=== PATIENT | female | born 1990 | race Caucasian/White ===

== ENCOUNTER 2017-09-18 14:16 | Emergency (ER) | payer BC, OTHER ==
[2017-09-18 14:25] VITALS: BP 120/84; BMI 32.9
[2017-09-18] MEDS ORDERED: BACITRACIN ZINC ONE (14:47)
[2017-09-18] MEDS ORDERED: TORADOL 60 MG VIAL ONE (15:16)
[2017-09-18] MEDS ORDERED: NUBAIN INJ 10 ONE (15:21)
[2017-09-18] MEDS ORDERED: NUBAIN INJ 10 IM ONE (15:24)
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
[2017-09-18] MEDS ORDERED: ADACEL TDaP IM ONE ×2 (15:29→15:57)
== END 2017-09-18 16:51 | disposition home or self-care (01) ==
LOC: ER 14:32
PROC: 2W3MX1Z Immobilization of Left Lower Extremity using Splint (ICD-10-PCS; principal; 2017-09-18)
DX: S93.402A Sprain of unspecified ligament of left ankle, initial encounter (principal); X58.XXXA Exposure to other specified factors, initial encounter; Y92.9 Unspecified place or not applicable; Z98.890 Other specified postprocedural states
CPT/HCPCS: 29515; 70450; 73700; 90471; 96372; 99282; 99283; A4222; J1885; J2300

== ENCOUNTER 2019-02-04 06:19 | Inpatient (IN) ==
[2019-02-04] MEDS ORDERED: LR 1000 ML IV 1,000 ML ONE ×3 (06:35→20:03)
[2019-02-04] MEDS ORDERED: D5LR 1L W PITOCIN 10 UNITS/L 10 UNITS/1,000 ML BAG IV ONE (06:36)
[2019-02-04] MEDS ORDERED: D5 1/2 NS 1L W PITOCIN 20 UNITS/L 20 UNITS/1,000 ML BAG IV ONE ×2 (06:36→20:34)
[2019-02-04] MEDS ORDERED: D5 1/2 NS 1000 ML 1,000 ML ONE (06:36)
[2019-02-04] MEDS ORDERED: PITOCIN ONE ×2 (06:36→16:29)
[2019-02-04] MEDS ORDERED: D5LR 1L W PITOCIN 10 UNITS/L 10 UNITS/1,000 ML BAG IV PRN (06:49)
[2019-02-04] MEDS ORDERED: MORPHINE SULFATE INJ 2 MG INJ IVP PRN (06:49)
[2019-02-04] MEDS ORDERED: PITOCIN IVP ONE (06:49)
[2019-02-04] MEDS ORDERED: REGLAN INJ 10 MG VIAL IVP PRN ×2 (06:49→21:07)
[2019-02-04] MEDS ORDERED: D5 1/2 NS 1000 ML 1,000 ML IV SCH (06:49)
[2019-02-04] MEDS ORDERED: PHENERGAN INJ 25 MG IM PRN ×2 (06:49→21:07)
[2019-02-04] MEDS ORDERED: NUBAIN INJ 200 MG VIAL MULTIDOSE IVP PRN (06:49)
--- NOTE | 2019-02-04 07:06 | DR.OB ---
OB Quick Note - Assessment/Plan Assessment/Plan: L&D 02/04/19 at 6:55am S-No complaint. O-Afebrile,VSS ODY=251 with good LTV, +accel, no decel. CTX=occasional, mild CVX=1-2cm/50%/-1/VTX AROM with clear fluid. IUPC and FSE placed. A-IUP at 38 3/7 weeks for induction Rh- Polyhydramnios P-Begin pitocin induction Anticipate
[2019-02-04] MEDS ORDERED: ZOFRAN INJ 4 MG VIAL ONE (08:51)
[2019-02-04] MEDS ORDERED: DIPRIVAN VIAL ONE (08:51)
[2019-02-04] MEDS ORDERED: NAROPIN EPIDURAL 0.2% + FENTANYL 90MCG 60 ML EPI ONE ×2 (10:24→16:30)
[2019-02-04] MEDS ORDERED: FENTANYL INJ 100 mcg ONE (10:24)
[2019-02-04] MEDS ORDERED: XYLOCAINE-MPF 1% ONE (10:36)
--- NOTE | 2019-02-04 11:49 | DR.OB ---
OB Quick Note - Assessment/Plan Assessment/Plan: L&D 02/04/19 at 11:40am Pitocin=20mu/min. S-No complaint. s/p epidural. O-Afebrile,VSS VJF=613 with good LTV, +accel, no decel. CTX=q 1 1/2 to 2 min., about 35-55mmHg CVX=3cm/75%/0/VTX A-IUP at 38 3/7 weeks for induction Polyhydramnios Rh- P-Cont. pitocin induction Anticipate
--- NOTE | 2019-02-04 16:09 | DR.OB ---
OB Quick Note - Assessment/Plan Assessment/Plan: L&D 02/04/19 at 4:00pm Pitocin=20mu/min. S-No complaint. O-Afebrile,VSS JKH=793 with good LTV, +accel, no decel. CTX=q 1 1/2 to 2 min., about 45-55mmHg CVX=4-5cm/90%/0 A-IUP at 38 3/7 weeks for induction Polyhydramnios Rh- P-Cont. pitocin induction Anticipate
[2019-02-04] MEDS ORDERED: D5 LR 1000 ML 1,000 ML ONE (16:29)
[2019-02-04] MEDS ORDERED: ANCEF 1 GRAM IV PREMIX* 1 G/50 ML BAG IV ONE (19:18)
[2019-02-04] MEDS ORDERED: XYLOCAINE 2% and EPINEPHRINE 1:100,000 ONE (19:25)
--- NOTE | 2019-02-04 19:34 | DR.OB ---
OB Quick Note - Assessment/Plan Assessment/Plan: L&D 02/04/19 at 7:00pm Pitocin=20mu/min. S-No complaint. O-Afebrile,VSS CQE=591 with good LTV, +accel, no decels. CTX=q 1 1/2 to 2 min., about 45-55mmHg CVX=5cm/75%/0 (no change in about 4 hours) A-IUP at 38 3/7 weeks with failure to dilate P-To C/S
[2019-02-04] MEDS ORDERED: DILAUDID INJ ONE (19:35)
[2019-02-04] MEDS ORDERED: BENADRYL INJ 50 MG VIAL IVP PRN ×2 (21:07→21:20)
[2019-02-04] MEDS ORDERED: ZOFRAN INJ 4 MG VIAL IVP PRN ×2 (21:07→21:20)
[2019-02-04] MEDS ORDERED: PERCOCET TAB 5/325 MG PO PRN (21:20)
[2019-02-04] MEDS ORDERED: NARCAN INJ IVP PRN (21:20)
[2019-02-04] MEDS ORDERED: MYLICON TAB 80 MG CHEW PO PRN (21:20)
[2019-02-04] MEDS ORDERED: ADACEL or BOOSTRIX TDaP VACCINE IM ONE (21:20)
[2019-02-04] MEDS ORDERED: HYPERRHO S/D (or RHOGAM) IM PRN (21:20)
[2019-02-04] MEDS ORDERED: TORADOL 30 MG VIAL IVP PRN (21:20)
[2019-02-04] MEDS ORDERED: D5 1/2 NS 1000 ML 1,000 ML with PITOCIN 20 UNITS IV SCH ×2 (22:00)
[2019-02-05 04:17] LABS: HEMATOCRIT 23.8 % (36.0-47.0); HEMOGLOBIN 8.2 g/dL (12.0-16.0)
[2019-02-05] MEDS: MOTRIN TAB 800 MG PO PRN ×3 (07:55→23:55)
[2019-02-05] MEDS: PRENATAL PLUS PO SCH (08:20)
[2019-02-05] MEDS: ZANTAC PO SCH ×2 (08:20→20:32)
[2019-02-05] MEDS: COLACE CAP 100 MG PO SCH ×2 (08:20→20:31)
[2019-02-05] MEDS: PERCOCET TAB 5/325 MG PO PRN ×2 (13:38→20:32)
[2019-02-05] MEDS: BACTROBAN CREAM TOP SCH ×2 (13:38→21:47)
[2019-02-05] MEDS: FERROUS GLUCONATE PO SCH (17:04)
[2019-02-06] MEDS: PERCOCET TAB 5/325 MG PO PRN ×3 (01:08→11:46)
[2019-02-06] MEDS: BACTROBAN CREAM TOP SCH (05:55)
[2019-02-06] MEDS: FERROUS GLUCONATE PO SCH (06:01)
[2019-02-06] MEDS: MOTRIN TAB 800 MG PO PRN (06:01)
[2019-02-06 07:55] VITALS: BP 115/70
[2019-02-06] MEDS: PRENATAL PLUS PO SCH (08:32)
[2019-02-06] MEDS: COLACE CAP 100 MG PO SCH (08:32)
[2019-02-06] MEDS: ZANTAC PO SCH (08:32)
== END 2019-02-06 11:50 | disposition home or self-care (01) | DRG 787 ==
LOC: LD 06:19 → MED/SURG 21:34
PROVIDERS: ADMIT Specialist; ATTEND Specialist
DX: O36.0930 Maternal care for other rhesus isoimmunization, third trimester, not applicable or unspecified; O99.013 Anemia complicating pregnancy, third trimester; Z3A.38 38 weeks gestation of pregnancy; Z23 Encounter for immunization; Z01.812 Encounter for preprocedural laboratory examination; O40.3XX0 Polyhydramnios, third trimester, not applicable or unspecified; Z01.818 Encounter for other preprocedural examination; O61.8 Other failed induction of labor; D50.8 Other iron deficiency anemias; Z37.0 Single live birth
CPT/HCPCS: 36415; 80048; 80307; 81001; 85014; 85018; 85025; 85461; 86592; 86850; 86900; 86901; A4216; A4222; S0197; G0434; J0690; J1170; J1885; J2001; J2405; J2590; J2704; J2790; J3010; J3490; J7120; J7121; S5010

== ENCOUNTER 2022-10-25 06:20 | Inpatient (IN) ==
[2022-10-25] MEDS ORDERED: D5 1/2 NS 1,000 ML 1,000 ML IV SCH (07:12)
[2022-10-25] MEDS ORDERED: ANCEF VIAL 1 GRAM IVP ONE (07:12)
[2022-10-25] MEDS ORDERED: DILAUDID INJ ONE (07:22)
[2022-10-25] MEDS ORDERED: XYLOCAINE 2 % (PLAIN) ONE (07:26)
[2022-10-25] MEDS ORDERED: PITOCIN ONE (07:26)
[2022-10-25] MEDS ORDERED: VERSED ONE ×2 (07:26)
[2022-10-25] MEDS ORDERED: EPHEDRINE SULFATE INJ ONE (07:26)
[2022-10-25] MEDS ORDERED: ZOFRAN INJ 4 MG VIAL ONE (07:26)
[2022-10-25] MEDS ORDERED: PEPCID 20 MG VIAL ONE (07:26)
[2022-10-25] MEDS ORDERED: MARCAINE SPINAL ONE (07:26)
[2022-10-25] MEDS ORDERED: BENADRYL INJ 50 MG VIAL IVP PRN (09:10)
[2022-10-25] MEDS ORDERED: DILAUDID INJ IVP PRN (09:10)
[2022-10-25] MEDS ORDERED: BARHEMSYS INJ IVP PRN (09:10)
[2022-10-25] MEDS ORDERED: ZOFRAN INJ 4 MG VIAL IVP PRN ×2 (09:10→09:52)
[2022-10-25] MEDS ORDERED: REGLAN INJ 10 MG VIAL IVP PRN ×2 (09:10→09:52)
[2022-10-25] MEDS ORDERED: MYLICON TAB 80 MG CHEW PO PRN (09:52)
[2022-10-25] MEDS ORDERED: HYPERRHO S/D (or RHOGAM) IM PRN (09:52)
[2022-10-25] MEDS ORDERED: NARCAN INJ IVP PRN (09:52)
[2022-10-25] MEDS ORDERED: ADACEL or BOOSTRIX TDaP VACCINE IM ONE (09:52)
[2022-10-25] MEDS ORDERED: PERCOCET TAB 5/325 MG PO PRN (09:52)
[2022-10-25] MEDS ORDERED: D5 1/2 NS 1,000 ML 1,000 ML with PITOCIN 20 UNITS IV SCH ×2 (10:00)
[2022-10-25] MEDS: BENADRYL INJ 50 MG VIAL IVP PRN ×2 (10:45→20:30)
[2022-10-25] MEDS ORDERED: NS IRRIGATION* 500 ML IR ONE (14:16)
[2022-10-25] MEDS: TORADOL 30 MG VIAL IVP PRN (15:43)
[2022-10-25] MEDS: NORMODYNE TAB 100 MG PO SCH ×2 (16:30→21:18)
[2022-10-26] MEDS: TORADOL 30 MG VIAL IVP PRN (00:20)
[2022-10-26] MEDS ORDERED: TORADOL 30 MG VIAL ONE (00:23)
[2022-10-26 04:58] LABS: HEMATOCRIT 21.4 % (36.0-47.0)
[2022-10-26 05:11] LABS: HEMOGLOBIN 7.3 g/dL (12.0-16.0)
[2022-10-26] MEDS ORDERED: PERCOCET TAB 5/325 MG PO PRN (07:19)
[2022-10-26] MEDS ORDERED: MOTRIN TAB 800 MG PO ONE (07:35)
[2022-10-26] MEDS ORDERED: COLACE CAP 100 MG PO ONE (07:42)
[2022-10-26] MEDS ORDERED: PRENATAL PLUS PO ONE (07:43)
[2022-10-26] MEDS ORDERED: NORMODYNE TAB 100 MG ONE (07:43)
[2022-10-26] MEDS ORDERED: PROTONIX TAB 40 MG PO ONE (07:43)
[2022-10-26] MEDS: MOTRIN TAB 800 MG PO PRN ×2 (07:44→19:50)
[2022-10-26] MEDS: PROTONIX TAB 40 MG PO SCH ×2 (07:44→09:23)
[2022-10-26] MEDS: PRENATAL PLUS PO SCH ×2 (07:44→09:25)
[2022-10-26] MEDS: COLACE CAP 100 MG PO SCH ×3 (07:45→20:39)
[2022-10-26] MEDS: NORMODYNE TAB 100 MG PO SCH ×3 (07:48→20:38)
[2022-10-26] MEDS: BACTROBAN TOPICAL OINT TOP SCH ×2 (14:00→22:00)
[2022-10-27] MEDS: BACTROBAN TOPICAL OINT TOP SCH (05:12)
[2022-10-27] MEDS: MOTRIN TAB 800 MG PO PRN (07:48)
[2022-10-27] MEDS: NORMODYNE TAB 100 MG PO SCH (08:00)
[2022-10-27] MEDS: COLACE CAP 100 MG PO SCH (08:00)
[2022-10-27] MEDS: PRENATAL PLUS PO SCH (08:00)
[2022-10-27] MEDS: PROTONIX TAB 40 MG PO SCH (08:00)
[2022-10-27 08:02] VITALS: BP 145/93
== END 2022-10-27 11:45 | disposition home or self-care (01) | DRG 806 ==
LOC: LD 06:20 → MED/SURG 09:42
PROVIDERS: ADMIT Specialist; ATTEND Specialist
DX: O34.211 Maternal care for low transverse scar from previous cesarean delivery; O99.613 Diseases of the digestive system complicating pregnancy, third trimester; N85.8 Other specified noninflammatory disorders of uterus; Z3A.38 38 weeks gestation of pregnancy; O36.0930 Maternal care for other rhesus isoimmunization, third trimester, not applicable or unspecified; O36.63X0 Maternal care for excessive fetal growth, third trimester, not applicable or unspecified; Z37.0 Single live birth; O13.3 Gestational [pregnancy-induced] hypertension without significant proteinuria, third trimester; K21.9 Gastro-esophageal reflux disease without esophagitis

== ENCOUNTER 2023-12-06 14:41 | Observation (INO) ==
[2023-12-06 15:59] VITALS: BMI 44.6
[2023-12-06] MEDS ORDERED: NS 1,000 ML IV 1,000 ML ONE (16:17)
[2023-12-06 16:26] LABS: BASOPHILS % (AUTO) 0.1 % (0.2-1.0); EOSINOPHILS % (AUTO) 0.2 % (0.9-2.9); HEMATOCRIT 33.3 % (36.0-47.0); HEMOGLOBIN 11.2 g/dL (12.0-16.0); LYMPHOCYTES # (AUTO) 0.7 X10^3/uL (1.3-2.9); LYMPHOCYTES % (AUTO) 5.2 % (21.0-51.0); MEAN CORPUSCULAR HEMOGLOBIN 27.1 pg (27.0-34.0); MEAN CORPUSCULAR HGB CONC 33.7 g/dL (33.0-35.0); MEAN CORPUSCULAR VOLUME 80.6 fL (80.0-100.0); MEAN PLATELET VOLUME 7.3 fL (7.4-11.0); MONOCYTES # (AUTO) 0.2 x10^3/uL (0.3-0.8); MONOCYTES % (AUTO) 1.6 % (0.0-13.0); NEUTROPHILS # (AUTO) 12.1 x10^3/uL (2.2-4.8); NEUTROPHILS % (AUTO) 92.9 % (42.0-75.0); PLATELET COUNT 299 X10^3/uL (150.0-450.0); RED BLOOD COUNT 4.13 X10^6/uL (3.5-5.4); RED CELL DISTRIBUTION WIDTH 14.9 % (11.6-16.5)
[2023-12-06 16:39] LABS: ALANINE AMINOTRANSFERASE 16 Units/L (12-78); ALBUMIN 2.3 g/dL (3.4-5.0); ALKALINE PHOSPHATASE 160 Units/L (46-116); ASPARTATE AMINO TRANSFERASE 12 Units/L (15-37); BLOOD UREA NITROGEN 2 mg/dL (7-18); CALCIUM 8.6 mg/dL (8.5-10.1); CARBON DIOXIDE 23.2 mmol/L (21-32); CHLORIDE 103 mmol/L (98-107); COR NA(FOR HYPERGLY) 138 mmol/L (136-145); CREATININE 0.64 mg/dL (0.55-1.02); GLUCOSE 145 mg/dL (65-99); MAGNESIUM 1.6 mg/dL (2.0-2.9); POTASSIUM 3.6 mmol/L (3.5-5.1); SODIUM 137 mmol/L (136-145); TOTAL PROTEIN 6.9 g/dL (6.4-8.2); eGFR NON BLACK RACES > 60 (>60)
[2023-12-06] MEDS ORDERED: XOPENEX 1.25 MG/3 ML NEBULE NEB PRN (16:45)
[2023-12-06 16:50] LABS: BAND NEUTROPHILS % 3 % (0-10)
[2023-12-06 16:52] LABS: PLATELET MORPHOLOGY COMMENT NORMAL (NORMAL)
[2023-12-06] MEDS: ROCEPHIN VIAL 1 GRAM 1 G in NS 100 ML IV 100 ML IV SCH (17:02)
[2023-12-06] MEDS: NS 1,000 ML IV 1,000 ML IV SCH (17:05)
[2023-12-06] MEDS ORDERED: CONSULT PHARMACY - POTASSIUM & MAGNESIUM XX SCH (18:00)
[2023-12-06] MEDS: NS + KCL 20 MEQ/L 1,000 ML IV SCH (18:42)
[2023-12-06] MEDS: TYLENOL 325 MG TAB PO PRN (20:26)
[2023-12-06] MEDS: MAGNESIUM SULFATE 1 GRAM/100 mL PREMIX 1 G/100 ML BAG IV SCH (20:27)
[2023-12-06] MEDS: PHENERGAN INJ 25 MG IM PRN (23:00)
[2023-12-07 04:58] LABS: BASOPHILS % (AUTO) 0.1 % (0.2-1.0); EOSINOPHILS % (AUTO) 0.3 % (0.9-2.9); HEMATOCRIT 28.6 % (36.0-47.0); HEMOGLOBIN 9.6 g/dL (12.0-16.0); LYMPHOCYTES # (AUTO) 1.2 X10^3/uL (1.3-2.9); LYMPHOCYTES % (AUTO) 10.1 % (21.0-51.0); MEAN CORPUSCULAR HEMOGLOBIN 27.4 pg (27.0-34.0); MEAN CORPUSCULAR HGB CONC 33.7 g/dL (33.0-35.0); MEAN CORPUSCULAR VOLUME 81.4 fL (80.0-100.0); MEAN PLATELET VOLUME 7.5 fL (7.4-11.0); MONOCYTES % (AUTO) 8.2 % (0.0-13.0); NEUTROPHILS # (AUTO) 9.6 x10^3/uL (2.2-4.8); NEUTROPHILS % (AUTO) 81.3 % (42.0-75.0); PLATELET COUNT 282 X10^3/uL (150.0-450.0); RED BLOOD COUNT 3.51 X10^6/uL (3.5-5.4); RED CELL DISTRIBUTION WIDTH 14.9 % (11.6-16.5); WHITE BLOOD COUNT 11.8 X10^3/uL (3.6-10.0)
[2023-12-07 05:25] LABS: ALANINE AMINOTRANSFERASE 14 Units/L (12-78); ALBUMIN 1.9 g/dL (3.4-5.0); ALKALINE PHOSPHATASE 129 Units/L (46-116); ASPARTATE AMINO TRANSFERASE 10 Units/L (15-37); BLOOD UREA NITROGEN 3 mg/dL (7-18); CALCIUM 7.9 mg/dL (8.5-10.1); CARBON DIOXIDE 22.2 mmol/L (21-32); CHLORIDE 106 mmol/L (98-107); COR CA(FOR HYPOALB) 9.6 mg/dL (8.5-10.1); COR NA(FOR HYPERGLY) 139 mmol/L (136-145); GLUCOSE 125 mg/dL (65-99); MAGNESIUM 1.9 mg/dL (2.0-2.9); POTASSIUM 3.8 mmol/L (3.5-5.1); SODIUM 138 mmol/L (136-145); TOTAL PROTEIN 5.9 g/dL (6.4-8.2); eGFR NON BLACK RACES > 60 (>60)
[2023-12-07] MEDS ORDERED: CONSULT PHARMACY - POTASSIUM & MAGNESIUM XX SCH (06:00)
[2023-12-07] MEDS: XOPENEX 1.25 MG/3 ML NEBULE NEB SCH (09:18)
[2023-12-07] MEDS: K-DUR TAB 20 MEQ PO SCH (09:47)
[2023-12-07] MEDS: MAG-OX TAB PO SCH (09:48)
[2023-12-07] MEDS: SOLU-Medrol 40 MG VIAL IVP SCH (09:49)
--- NOTE | 2023-12-07 10:09 | DR.H&P ---
H&P History & Physical for Day of: H&P Date: 12/07/23 Chief Complaint Chief Complaint: persistent cough weakness, nausea/vomiting Allergies Allergies Allergy/AdvReac Type Severity Reaction Status Date / Time sulfamethoxazole Allergy Verified 10/25/22 22:21 [From ] trimethoprim [From ] Allergy Verified 10/25/22 22:21 History of Present Illness History of Present Illness: Patient is a 33-year-old female that is 30 weeks . She was directly admitted from clinicDr. Farnsworth's office due to generalized weakness from nausea and vomiting. She has also had a persistent cough and has been treated with antibiotics that has not resolved. She was admitted for dehydration and acute bronchitis. Labs/imaging: WBC 11.8, hemoglobin 9.6, platelets 282, sodium 138, potassium 3.8, creatinine 0.50, glucose 125, COVID/flu/RSV negative, chest x-ray revealed no acute cardiopulmonary findings, AIT pending. Patient is currently on IV fluids normal saline at 75 mL/h, IV antibiotics Rocephin. On exam patient did have some rhonchi bilaterally. Will add on scheduled bronchodilators Pulmicort and Xopenex. Respiratory therapy. Will also add IV Solu-Medrol 40 mg daily. OBDr. Aviles has been consulted. Otherwise continue with current treatment plan, continue closely monitor and follow-up labs in the morning. Past Medical History Past Medical History: Anxiety Past Surgical History Surgical History: and Ortho Surgery Family History Family Medical History: Cancer and Coronary Artery Disease Social History Does patient currently use any type of tobacco product: No Have you used tobacco products in the last 12 months: No Type of Tobacco Use: None Alcohol Use: None Drug Use: None Labs 12/07/23 04:37 12/07/23 04:37 Labs: Laboratory WBC 11.8 X10^3/uL (3.6-10.0) H 12/07/23 04:37 RBC 3.51 X10^6/uL (3.5-5.4) 12/07/23 04:37 Hgb 9.6 g/dL (12.0-16.0) L 12/07/23 04:37 Hct 28.6 % (36.0-47.0) L 12/07/23 04:37 MCV 81.4 fL (80.0-100.0) 12/07/23 04:37 MCH 27.4 pg (27.0-34.0) 12/07/23 04:37 MCHC 33.7 g/dL (33.0-35.0) 12/07/23 04:37 RDW 14.9 % (11.6-16.5) 12/07/23 04:37 Plt Count 282 X10^3/uL (150.0-450.0) 12/07/23 04:37 Plt Count Comment Adequate (ADEQUATE) 12/06/23 16:20 MPV 7.5 fL (7.4-11.0) 12/07/23 04:37 Neut % (Auto) 81.3 % (42.0-75.0) H 12/07/23 04:37 Lymph % (Auto) 10.1 % (21.0-51.0) L 12/07/23 04:37 [place] % (Auto) 8.2 % (0.0-13.0) 12/07/23 04:37 Eos % (Auto) 0.3 % (0.9-2.9) L 12/07/23 04:37 Baso % (Auto) 0.1 % (0.2-1.0) L 12/07/23 04:37 Neut # (Auto) 9.6 x10^3/uL (2.2-4.8) H 12/07/23 04:37 Lymph # (Auto) 1.2 X10^3/uL (1.3-2.9) L 12/07/23 04:37 [place] # (Auto) 1.0 x10^3/uL (0.3-0.8) H 12/07/23 04:37 Eos # (Auto) 0.0 x10^3/uL (0.0-0.2) 12/07/23 04:37 Baso # (Auto) 0.0 X10^3/uL (0.0-0.1) 12/07/23 04:37 Absolute Nucleated RBC 0.0 /100WBC 12/07/23 04:37 Total Counted 100 12/06/23 16:20 Neutrophils % (Manual) 91 % (39-76) H 12/06/23 16:20 Band Neutrophils % 3 % (0-10) 12/06/23 16:20 Lymphocytes % (Manual) 6 % (13-43) L 12/06/23 16:20 Plt Morphology Comment Normal (NORMAL) 12/06/23 16:20 RBC Morphology Normal (NORMAL) 12/06/23 16:20 Sodium 138 mmol/L (136-145) 12/07/23 04:37 Corrected Sodium 139 mmol/L (136-145) 12/07/23 04:37 Potassium 3.8 mmol/L (3.5-5.1) 12/07/23 04:37 Chloride 106 mmol/L (98-107) 12/07/23 04:37 Carbon Dioxide 22.2 mmol/L (21-32) 12/07/23 04:37 BUN 3 mg/dL (7-18) L 12/07/23 04:37 Creatinine 0.50 mg/dL (0.55-1.02) L 12/07/23 04:37 Est GFR (MDRD) Af Amer > 60 (>60) 12/07/23 04:37 Est GFR (MDRD) Non-Af > 60 (>60) 12/07/23 04:37 Glucose 125 mg/dL (65-99) H 12/07/23 04:37 Calcium 7.9 mg/dL (8.5-10.1) L 12/07/23 04:37 Corrected Calcium 9.6 mg/dL (8.5-10.1) 12/07/23 04:37 Magnesium 1.9 mg/dL (2.0-2.9) L 12/07/23 04:37 Total Bilirubin 0.20 mg/dL (0.2-1.0) 12/07/23 04:37 AST 10 Units/L (15-37) L 12/07/23 04:37 ALT 14 Units/L (12-78) 12/07/23 04:37 Alkaline Phosphatase 129 Units/L (46-116) H 12/07/23 04:37 Total Protein 5.9 g/dL (6.4-8.2) L 12/07/23 04:37 Albumin 1.9 g/dL (3.4-5.0) L 12/07/23 04:37 Globulin 4.0 g/dL (2.5-4.5) 12/07/23 04:37 Albumin/Globulin Ratio 0.5 Ratio (1.1-2.1) L 12/07/23 04:37 SARS-CoV-2 (PCR) Negative (NEGATIVE) 12/06/23 18:07 Influenza Type A (PCR) Negative (NEGATIVE) 12/06/23 18:07 Influenza Type B (PCR) Negative (NEGATIVE) 12/06/23 18:07 RSV (PCR) Negative (NEGATIVE) 12/06/23 18:07 Review of Systems Constitutional: Weakness Eyes: No Symptoms Reported ENT: No Symptoms Reported Respiratory: Cough Cardiovascular: No Symptoms Reported Gastrointestinal: Nausea and Vomiting Genitourinary: No Symptoms Reported Musculoskeletal: No Symptoms Reported Skin: No Symptoms Reported Neurological: No Symptoms Reported Physical Exam Vital Signs: Vital Signs Temperature 97.5 F Temperature 98.0 F Pulse Rate [Radial] 74 Pulse Rate [Radial] 80 Pulse Rate 97 Respiratory Rate 17 Respiratory Rate 20 Blood Pressure [Left Arm] 133/65 Blood Pressure [Left Arm] 117/70 O2 Sat by Pulse Oximetry 97 O2 Sat by Pulse Oximetry 98 O2 Sat by Pulse Oximetry 98 Oriented: Normal Eyes: Normal Ear: Normal Nose: Normal Throat: Normal Respiratory: Rhonchi Throughout (faint b/l) Cardiovascular: Normal : Normal Auscultation: Bowel Sounds: Normal Palpation: Normal Tenderness: Normal Skin: Normal Musculoskeletal: Normal Psychiatric: Normal Mood Description: Calm and Appropriate Affect: Normal Speech Pattern: Clear and Appropriate Assessment/Plan (1) Acute bronchitis: Status: Acute (2) Dehydration: Status: Acute Review H&P Reviewed: Yes Patient was examined?: Yes
[2023-12-07] MEDS: PULMICORT NEB TX 0.5 MG NEB SCH (20:01)
[2023-12-08 04:55] VITALS: RESP 18
[2023-12-08 05:14] LABS: BASOPHILS # (AUTO) 0.1 X10^3/uL (0.0-0.1); BASOPHILS % (AUTO) 1.3 % (0.2-1.0); EOSINOPHILS # (AUTO) 0.1 x10^3/uL (0.0-0.2); EOSINOPHILS % (AUTO) 1.4 % (0.9-2.9); HEMATOCRIT 26.3 % (36.0-47.0); HEMOGLOBIN 8.9 g/dL (12.0-16.0); LYMPHOCYTES # (AUTO) 1.9 X10^3/uL (1.3-2.9); LYMPHOCYTES % (AUTO) 19.2 % (21.0-51.0); MEAN CORPUSCULAR HEMOGLOBIN 27.6 pg (27.0-34.0); MEAN CORPUSCULAR HGB CONC 33.9 g/dL (33.0-35.0); MEAN CORPUSCULAR VOLUME 81.5 fL (80.0-100.0); MEAN PLATELET VOLUME 7.4 fL (7.4-11.0); MONOCYTES # (AUTO) 0.8 x10^3/uL (0.3-0.8); MONOCYTES % (AUTO) 7.7 % (0.0-13.0); NEUTROPHILS # (AUTO) 7.1 x10^3/uL (2.2-4.8); NEUTROPHILS % (AUTO) 70.4 % (42.0-75.0); PLATELET COUNT 239 X10^3/uL (150.0-450.0); RED BLOOD COUNT 3.23 X10^6/uL (3.5-5.4); RED CELL DISTRIBUTION WIDTH 14.9 % (11.6-16.5); WHITE BLOOD COUNT 10.1 X10^3/uL (3.6-10.0)
[2023-12-08 05:23] LABS: ALANINE AMINOTRANSFERASE 15 Units/L (12-78); ALBUMIN 1.8 g/dL (3.4-5.0); ALKALINE PHOSPHATASE 118 Units/L (46-116); ASPARTATE AMINO TRANSFERASE 12 Units/L (15-37); BLOOD UREA NITROGEN 4 mg/dL (7-18); CALCIUM 7.8 mg/dL (8.5-10.1); CARBON DIOXIDE 23.9 mmol/L (21-32); CHLORIDE 108 mmol/L (98-107); COR CA(FOR HYPOALB) 9.6 mg/dL (8.5-10.1); GLUCOSE 92 mg/dL (65-99); MAGNESIUM 1.7 mg/dL (2.0-2.9); POTASSIUM 3.5 mmol/L (3.5-5.1); SODIUM 141 mmol/L (136-145); TOTAL PROTEIN 5.6 g/dL (6.4-8.2); eGFR NON BLACK RACES > 60 (>60)
[2023-12-08] MEDS ORDERED: CONSULT PHARMACY - POTASSIUM & MAGNESIUM XX SCH (07:00)
[2023-12-08 08:03] VITALS: BP 132/74; PULSE 86; TEMP 97.1; O2SAT 98
[2023-12-08] MEDS ORDERED: MAG-OX TAB PO SCH (09:00)
[2023-12-08] MEDS: NS 1,000 ML IV 1,000 ML with MAGNESIUM SULFATE 50% INJ VIAL 1 G IV SCH (09:08)
[2023-12-08] MEDS: K-DUR TAB 20 MEQ PO SCH (09:09)
[2023-12-08] MEDS: ROBITUSSIN DM PO PRN (09:16)
--- NOTE | 2023-12-10 16:12 | W.DIS.FURT ---
Summary of Discharge Discharge Summary of Date Date of Exam: 12/08/23 Admission Date Date of Admission: 12/07/23 Admission Diagnosis Hospital Course: Patient is a 33-year-old female that is 30 weeks admitted for dehydration and acute bronchitis. Her hospital/treatment course included: IV fluids normal saline at 75 mL/h, IV antibiotics Rocephin, scheduled bronchodilators Pulmicort and Xopenex. Respiratory therapy. IV Solu-Medrol 40 mg daily. OBDrAnibal Aviles has been consulted, agreed with treatment plan. Pt responded well to treatment and symptoms improved. Chest x-ray revealed no acute cardiopulmonary findings, AIT revealed rhino/enterovirus. She was discharged in stable condition, rx xopenex and prednisone. Instructed to follow up with trade show manager and pcp in 1 week. Vital Signs: Vital Signs (72 hours) 12/06/23 16:12 12/06/23 16:16 12/06/23 16:48 Temperature Pulse Rate 120 H Pulse Rate [Radial] Pulse Rate [Right Brachial] Respiratory Rate 18 Blood Pressure 160/98 Blood Pressure [Left Arm] Blood Pressure [Right Arm] O2 Sat by Pulse Oximetry 95 Oxygen Delivery Method Room Air Room Air Room Air 12/06/23 16:00 12/06/23 20:00 12/06/23 20:26 Temperature 97.7 F 98.0 F Pulse Rate Pulse Rate [Radial] 111 H Pulse Rate [Right Brachial] Respiratory Rate 20 19 20 Blood Pressure Blood Pressure [Left Arm] 142/80 134/71 Blood Pressure [Right Arm] O2 Sat by Pulse Oximetry 117 H 96 Oxygen Delivery Method Room Air Room Air 12/06/23 21:26 12/06/23 19:00 12/06/23 23:44 Temperature 97.9 F Pulse Rate Pulse Rate [Radial] 84 Pulse Rate [Right Brachial] Respiratory Rate 20 20 Blood Pressure Blood Pressure [Left Arm] 124/66 Blood Pressure [Right Arm] O2 Sat by Pulse Oximetry 95 Oxygen Delivery Method Room Air Room Air 12/07/23 04:00 12/07/23 08:00 12/07/23 09:19 Temperature 98.0 F 97.5 F L Pulse Rate 97 H Pulse Rate [Radial] 80 74 Pulse Rate [Right Brachial] Respiratory Rate 20 17 Blood Pressure Blood Pressure [Left Arm] 117/70 133/65 Blood Pressure [Right Arm] O2 Sat by Pulse Oximetry 98 98 97 Oxygen Delivery Method Room Air Room Air 12/07/23 15:34 12/07/23 07:00 12/07/23 12:00 Temperature 97.7 F Pulse Rate Pulse Rate [Radial] 97 H Pulse Rate [Right Brachial] Respiratory Rate 18 18 Blood Pressure Blood Pressure [Left Arm] 135/84 Blood Pressure [Right Arm] O2 Sat by Pulse Oximetry 98 Oxygen Delivery Method Room Air Room Air 12/07/23 16:00 12/07/23 16:34 12/07/23 19:31 Temperature 97.6 F 98.2 F Pulse Rate Pulse Rate [Radial] 101 H 93 H Pulse Rate [Right Brachial] Respiratory Rate 18 18 18 Blood Pressure Blood Pressure [Left Arm] 132/81 142/78 Blood Pressure [Right Arm] O2 Sat by Pulse Oximetry 98 97 Oxygen Delivery Method Room Air Room Air 12/07/23 20:02 12/07/23 20:02 12/07/23 22:24 Temperature Pulse Rate 96 H Pulse Rate [Radial] Pulse Rate [Right Brachial] Respiratory Rate Blood Pressure Blood Pressure [Left Arm] Blood Pressure [Right Arm] O2 Sat by Pulse Oximetry 99 Oxygen Delivery Method Room Air Room Air 12/08/23 00:48 12/08/23 04:00 12/08/23 06:11 Temperature 98.2 F 98.1 F Pulse Rate 88 Pulse Rate [Radial] Pulse Rate [Right Brachial] 84 80 Respiratory Rate 20 18 Blood Pressure Blood Pressure [Left Arm] Blood Pressure [Right Arm] 155/58 121/73 O2 Sat by Pulse Oximetry 99 99 97 Oxygen Delivery Method Room Air Room Air 12/08/23 08:00 12/08/23 07:00 12/08/23 09:17 Temperature 97.1 F L Pulse Rate Pulse Rate [Radial] Pulse Rate [Right Brachial] 86 Respiratory Rate 18 18 Blood Pressure Blood Pressure [Left Arm] Blood Pressure [Right Arm] 132/74 O2 Sat by Pulse Oximetry 98 Oxygen Delivery Method Room Air Room Air 12/08/23 09:17 Temperature Pulse Rate Pulse Rate [Radial] Pulse Rate [Right Brachial] Respiratory Rate Blood Pressure Blood Pressure [Left Arm] Blood Pressure [Right Arm] O2 Sat by Pulse Oximetry Oxygen Delivery Method Room Air Labs: Laboratory Last Values WBC 10.1 X10^3/uL (3.6-10.0) H 12/08/23 04:20 RBC 3.23 X10^6/uL (3.5-5.4) L 12/08/23 04:20 Hgb 8.9 g/dL (12.0-16.0) L 12/08/23 04:20 Hct 26.3 % (36.0-47.0) L 12/08/23 04:20 MCV 81.5 fL (80.0-100.0) 12/08/23 04:20 MCH 27.6 pg (27.0-34.0) 12/08/23 04:20 MCHC 33.9 g/dL (33.0-35.0) 12/08/23 04:20 RDW 14.9 % (11.6-16.5) 12/08/23 04:20 Plt Count 239 X10^3/uL (150.0-450.0) 12/08/23 04:20 Plt Count Comment Adequate (ADEQUATE) 12/06/23 16:20 MPV 7.4 fL (7.4-11.0) 12/08/23 04:20 Neut % (Auto) 70.4 % (42.0-75.0) 12/08/23 04:20 Lymph % (Auto) 19.2 % (21.0-51.0) L 12/08/23 04:20 [place] % (Auto) 7.7 % (0.0-13.0) 12/08/23 04:20 Eos % (Auto) 1.4 % (0.9-2.9) 12/08/23 04:20 Baso % (Auto) 1.3 % (0.2-1.0) H 12/08/23 04:20 Neut # (Auto) 7.1 x10^3/uL (2.2-4.8) H 12/08/23 04:20 Lymph # (Auto) 1.9 X10^3/uL (1.3-2.9) 12/08/23 04:20 [place] # (Auto) 0.8 x10^3/uL (0.3-0.8) 12/08/23 04:20 Eos # (Auto) 0.1 x10^3/uL (0.0-0.2) 12/08/23 04:20 Baso # (Auto) 0.1 X10^3/uL (0.0-0.1) 12/08/23 04:20 Absolute Nucleated RBC 0.1 /100WBC 12/08/23 04:20 Total Counted 100 12/06/23 16:20 Neutrophils % (Manual) 91 % (39-76) H 12/06/23 16:20 Band Neutrophils % 3 % (0-10) 12/06/23 16:20 Lymphocytes % (Manual) 6 % (13-43) L 12/06/23 16:20 Plt Morphology Comment Normal (NORMAL) 12/06/23 16:20 RBC Morphology Normal (NORMAL) 12/06/23 16:20 Sodium 141 mmol/L (136-145) 12/08/23 04:20 Corrected Sodium TNP 12/08/23 04:20 Potassium 3.5 mmol/L (3.5-5.1) 12/08/23 04:20 Chloride 108 mmol/L (98-107) H 12/08/23 04:20 Carbon Dioxide 23.9 mmol/L (21-32) 12/08/23 04:20 BUN 4 mg/dL (7-18) L 12/08/23 04:20 Creatinine 0.40 mg/dL (0.55-1.02) L 12/08/23 04:20 Est GFR (MDRD) Af Amer > 60 (>60) 12/08/23 04:20 Est GFR (MDRD) Non-Af > 60 (>60) 12/08/23 04:20 Glucose 92 mg/dL (65-99) 12/08/23 04:20 Calcium 7.8 mg/dL (8.5-10.1) L 12/08/23 04:20 Corrected Calcium 9.6 mg/dL (8.5-10.1) 12/08/23 04:20 Magnesium 1.7 mg/dL (2.0-2.9) L 12/08/23 04:20 Total Bilirubin 0.10 mg/dL (0.2-1.0) L 12/08/23 04:20 AST 12 Units/L (15-37) L 12/08/23 04:20 ALT 15 Units/L (12-78) 12/08/23 04:20 Alkaline Phosphatase 118 Units/L (46-116) H 12/08/23 04:20 Total Protein 5.6 g/dL (6.4-8.2) L 12/08/23 04:20 Albumin 1.8 g/dL (3.4-5.0) L 12/08/23 04:20 Globulin 3.8 g/dL (2.5-4.5) 12/08/23 04:20 Albumin/Globulin Ratio 0.5 Ratio (1.1-2.1) L 12/08/23 04:20 SARS-CoV-2 (PCR) Negative (NEGATIVE) 12/06/23 18:07 Influenza Type A (PCR) Negative (NEGATIVE) 12/06/23 18:07 Influenza Type B (PCR) Negative (NEGATIVE) 12/06/23 18:07 RSV (PCR) Negative (NEGATIVE) 12/06/23 18:07 Reason For Visit: DEHYDRATION, VOMITING, BRONCHITIS Discharge Date Discharge Date: 12/08/23 Discharge Diagnosis All Active Problems (Updated 12/07/23 @ 10:08 by Heber Marshall) Dehydration (Acute) Acute bronchitis (Acute) macrosomia (Acute) induced hypertension (Acute) delivery delivered (Acute) Weakness (Acute) Feeling jittery (Acute) Hx of hypoglycemia (Acute) Headache (Acute) Uterine contractions during (Acute) Anemia (Acute) Polyhydramnios (Acute) delivery delivered (Acute) Left ankle sprain (Acute) Third trimester (Acute) Plan of Treatment: Continue with present treatment and follow up plan. Pt is to keep follow up appointment as instructed and take medications as ordered. Discharge Medications Discharge Medications: sulfamethoxazole [From ] Allergy (Verified 10/25/22 22:21) trimethoprim [From ] Allergy (Verified 10/25/22 22:21) CONTINUE taking the following medications ondansetron HCl 4 mg tablet 4 mg PO Q4H PRN 12/07/23 [History] vits no.130-ferrous fum 27 mg iron-folic acid 800 mcg tablet ( Vitamin) 1 tab PO QDAY 12/07/23 [History] Discharge Plan Discharge Plan Hospital Course: Patient is a 33-year-old female that is 30 weeks admitted for dehydration and acute bronchitis. Her hospital/treatment course included: IV fluids normal saline at 75 mL/h, IV antibiotics Rocephin, scheduled bronchodilators Pulmicort and Xopenex. Respiratory therapy. IV Solu-Medrol 40 mg daily. OBDrAnibal Aviles has been consulted, agreed with treatment plan. Pt responded well to treatment and symptoms improved. Chest x-ray revealed no acute cardiopulmonary findings, AIT revealed rhino/enterovirus. She was discharged in stable condition, rx xopenex and prednisone. Instructed to follow up with trade show manager and pcp in 1 week. Patient Disposition: 01 HOME, SELF-CARE Condition: Stable Health Concerns: Post Hospitalization: new medications and changes needed to prevent readmission or further decline. Pt educated and given instructions on all concerns. Care Plan Goals: Problem: Fluid Volume Deficit Goal: Maintain/Improved Adequate hydration. Instructions: Follow provided instructions. Follow up with primary physician as directed. Contact primary care physician or report to the closest Emergency Room if condition worsens. Plan of Treatment: Continue with present treatment and follow up plan. Pt is to keep follow up appointment as instructed and take medications as ordered. Prescriptions: New prednisone 20 mg Tablet 20 mg PO BID 3 Days Qty: 6 0RF levalbuterol HCl 1.25 mg/3 mL Solution For Nebulization 1.25 mg NEB Q4H PRN (Reason: Shortness Of Breath) Qty: 21 0RF Continued ondansetron HCl 4 mg tablet 4 mg PO Q4H PRN Vitamin 27 mg iron- 800 mcg tablet 1 tab PO QDAY Orders to Discharge Patient Discharge Orders: Discharge (Routine); Ordered 12/08/23 Ordered By: Heber Marshall Follow ups/Referrals Follow ups/Referrals: Devendra Farnsworth [Primary Care Provider] - 12/14/23 10:15 am BRAYDEN ACOSTA [STAFF PHYSICIAN] - (Follow up as scheduled) Instructions Instructions: Nausea and Vomiting, Adult, [id number], Dehydration, Adult, [id number], Acute Bronchitis, Adult, [id number], Rehydration, Adult Activity Restrictions/Additional Instructions: Take Cefdinir as directed prior to admission. Stand Alone Forms: Excuse From Work or School, Post Hospital Follow Up Care
== END 2023-12-08 11:00 | disposition home or self-care (01) ==
LOC: MED/SURG
PROVIDERS: ADMIT Internal Medicine; ATTEND Internal Medicine
DX: Z3A.30 30 weeks gestation of pregnancy; B97.89 Other viral agents as the cause of diseases classified elsewhere; O99.513 Diseases of the respiratory system complicating pregnancy, third trimester; B97.19 Other enterovirus as the cause of diseases classified elsewhere; Z20.822 Contact with and (suspected) exposure to COVID-19; E86.0 Dehydration; R73.09 Other abnormal glucose; E83.42 Hypomagnesemia

== ENCOUNTER 2024-01-30 09:30 | Inpatient (IN) ==
[2024-01-30 09:59] VITALS: BMI 48.0
[2024-01-30 10:09] LABS: BILIRUBIN,URINE NEGATIVE (NEGATIVE); BLOOD/HEMOGLOBIN,URINE NEGATIVE (NEGATIVE); GLUCOSE, URINE NEGATIVE (NEGATIVE); KETONES,URINE NEGATIVE (NEGATIVE); LEUKOCYTE ESTERASE ,URINE NEGATIVE (NEGATIVE); NITRITES,URINE NEGATIVE (NEGATIVE); PROTEIN,URINE 3+ (NEGATIVE); UROBILINOGEN,URINE NORMAL (NORMAL)
[2024-01-30 10:25] LABS: APPEARANCE,URINE CLEAR (CLEAR); BACTERIA,URINE NEGATIVE /HPF (NEGATIVE); COLOR,URINE YELLOW (YELLOW); RBC,URINE NONE SEEN /HPF (0-3); SQUAMOUS EPITHELIAL CELL,UR MANY /HPF (NEGATIVE)
[2024-01-30] MEDS ORDERED: KETAMINE HCL ONE (11:24)
[2024-01-30] MEDS ORDERED: XYLOCAINE 2 % (PLAIN) ONE (11:24)
[2024-01-30 11:45] LABS: BASOPHILS % (AUTO) 0.4 % (0.2-1.0); EOSINOPHILS # (AUTO) 0.1 x10^3/uL (0.0-0.2); EOSINOPHILS % (AUTO) 0.7 % (0.9-2.9); HEMATOCRIT 32.5 % (36.0-47.0); HEMOGLOBIN 10.8 g/dL (12.0-16.0); LYMPHOCYTES # (AUTO) 1.6 X10^3/uL (1.3-2.9); LYMPHOCYTES % (AUTO) 16.7 % (21.0-51.0); MEAN CORPUSCULAR HEMOGLOBIN 26.8 pg (27.0-34.0); MEAN CORPUSCULAR HGB CONC 33.4 g/dL (33.0-35.0); MEAN CORPUSCULAR VOLUME 80.2 fL (80.0-100.0); MEAN PLATELET VOLUME 8.5 fL (7.4-11.0); MONOCYTES # (AUTO) 0.6 x10^3/uL (0.3-0.8); NEUTROPHILS # (AUTO) 7.2 x10^3/uL (2.2-4.8); NEUTROPHILS % (AUTO) 76.2 % (42.0-75.0); PLATELET COUNT 248 X10^3/uL (150.0-450.0); RED BLOOD COUNT 4.05 X10^6/uL (3.5-5.4); RED CELL DISTRIBUTION WIDTH 15.5 % (11.6-16.5); WHITE BLOOD COUNT 9.4 X10^3/uL (3.6-10.0)
[2024-01-30] MEDS ORDERED: MAGNESIUM SULFATE 40 GRAMS IV 40 G/1,000 ML BAG IV ONE (11:45)
[2024-01-30] MEDS: ANCEF VIAL 1 GRAM ONE (11:48)
[2024-01-30 11:50] LABS: INR 0.94 (0.8-1.3)
[2024-01-30 11:53] LABS: URIC ACID 5.3 mg/dL (2.6-6.0)
[2024-01-30] MEDS: LR 1,000 ML IV 1,000 ML IV ONE ×3 (11:55→12:42)
[2024-01-30] MEDS: LABETALOL HCL IVP ONE ×2 (12:00→12:22)
[2024-01-30] MEDS: MAGNESIUM SULFATE 40 GRAMS IV 40 G/1,000 ML BAG IV PRN (12:02)
--- NOTE | 2024-01-30 12:08 | ED.ABDFE ---
<Statement entered by Leela Dougherty - 02/07/24 09:15> History and Physical for OB who was admitted through ER. I think this was the wrong template, but at the time it's what popped up, I thought from the ER. Marnie, can you delete this? There is already an H&P, and I don't know how to recall, and delete this note. Thanks. HPI Time Seen Time Seen by Provider: 01/30/24 11:55 PCP Primary Care Physician: Radha HPI Comment HPI Comment: Patient is a 33 year old who presents with worsening BP in the severe range at 37 w 5 d, with a previous x 2 who also desires tubal ligation. Complaint Chief Complaint:: pt amb to room 2 with c/o high BP and abd pain that started last night, pt reports she is scheduled for a next Monday, pt with NAD noted at present, fetus HR in the 140's on monitor COVID-19 Coronavirus risk:travel/contact w/high risk person: No Has patient experienced Coronavirus symptoms: No Reviewed Nurses Notes Review: Yes Source History Provided: Patient Mode of arrival Mode of Arrival: Ambulatory Timing Onset of Chief Complaint: 01/29/24 Other history Other History: Has been followed for elevated blood pressures during this PMH PMH Past Medical History: Yes Past Medical History: Anxiety Past Medical History Comment: Denies a history of chronic hypertension Past Surgical History: Yes Surgical History: and Ortho Surgery Family History History of Family Medical Conditions: Yes Family Medical History: Cancer and Coronary Artery Disease Social History Does patient currently use any type of tobacco product: No Have you used tobacco products in the last 12 months: No Type of Tobacco Use: None Alcohol Use: None Do you use any recreational Drugs:: No Lives With: Family Lives Where: Home Travel Risk Coronavirus risk:travel/contact w/high risk person: No Has patient experienced Coronavirus symptoms: No Infectious screening Have you traveled outside the country in the last 6 months?: No Isolation: Standard ROS Review of Systems All Other Systems: Reviewed and Negative PE Vital Signs Vitals: Vital Signs Temperature 99.3 F Pulse Rate 75 Pulse Rate 75 Pulse Rate 69 Pulse Rate 77 Pulse Rate 76 Respiratory Rate 18 Respiratory Rate 20 Respiratory Rate 20 Respiratory Rate 20 Blood Pressure 194/113 Blood Pressure 189/108 Blood Pressure 192/105 Blood Pressure 190/108 Blood Pressure 209/119 O2 Sat by Pulse Oximetry 98 O2 Sat by Pulse Oximetry 98 O2 Sat by Pulse Oximetry 98 O2 Sat by Pulse Oximetry 98 O2 Sat by Pulse Oximetry 98 MDM Differential Diagnosis Differential Diagnosis- Considerations may include:: Other (comments) (33 year old, G3, P2 with pre-eclampsia, BP are severe and at 37 w 5 d, delivery is indicated. NPO and consented. ) ROR Labs Reviewed 01/31/24 03:50 01/30/24 10:20 Laboratory: WBC 9.4 X10^3/uL (3.6-10.0) 01/30/24 10:20 RBC 4.05 X10^6/uL (3.5-5.4) 01/30/24 10:20 Hgb 10.8 g/dL (12.0-16.0) L 01/30/24 10:20 Hct 32.5 % (36.0-47.0) L 01/30/24 10:20 MCV 80.2 fL (80.0-100.0) 01/30/24 10:20 MCH 26.8 pg (27.0-34.0) L 01/30/24 10:20 MCHC 33.4 g/dL (33.0-35.0) 01/30/24 10:20 RDW 15.5 % (11.6-16.5) 01/30/24 10:20 Plt Count 248 X10^3/uL (150.0-450.0) 01/30/24 10:20 MPV 8.5 fL (7.4-11.0) 01/30/24 10:20 Neut % (Auto) 76.2 % (42.0-75.0) H 01/30/24 10:20 Lymph % (Auto) 16.7 % (21.0-51.0) L 01/30/24 10:20 [place] % (Auto) 6.0 % (0.0-13.0) 01/30/24 10:20 Eos % (Auto) 0.7 % (0.9-2.9) L 01/30/24 10:20 Baso % (Auto) 0.4 % (0.2-1.0) 01/30/24 10:20 Neut # (Auto) 7.2 x10^3/uL (2.2-4.8) H 01/30/24 10:20 Lymph # (Auto) 1.6 X10^3/uL (1.3-2.9) 01/30/24 10:20 [place] # (Auto) 0.6 x10^3/uL (0.3-0.8) 01/30/24 10:20 Eos # (Auto) 0.1 x10^3/uL (0.0-0.2) 01/30/24 10:20 Baso # (Auto) 0.0 X10^3/uL (0.0-0.1) 01/30/24 10:20 Absolute Nucleated RBC 0.0 /100WBC 01/30/24 10:20 PT 12.4 SECONDS (11.8-14.3) 01/30/24 10:20 INR Target Range - 01/30/24 10:20 INR 0.94 (0.8-1.3) 01/30/24 10:20 APTT 27.4 SECONDS (22.9-36.5) 01/30/24 10:20 PTT Comment - 01/30/24 10:20 Fibrinogen 643 mg/dL (239-489) H 01/30/24 10:20 Sodium 138 mmol/L (136-145) 01/30/24 10:20 Corrected Sodium TNP 01/30/24 10:20 Potassium 4.0 mmol/L (3.5-5.1) 01/30/24 10:20 Chloride 103 mmol/L (98-107) 01/30/24 10:20 Carbon Dioxide 26.3 mmol/L (21-32) 01/30/24 10:20 BUN 5 mg/dL (7-18) L 01/30/24 10:20 Creatinine 0.62 mg/dL (0.55-1.02) 01/30/24 10:20 Est GFR (MDRD) Af Amer > 60 (>60) 01/30/24 10:20 Est GFR (MDRD) Non-Af > 60 (>60) 01/30/24 10:20 Glucose 85 mg/dL (65-99) 01/30/24 10:20 Uric Acid 5.3 mg/dL (2.6-6.0) 01/30/24 10:20 Calcium 8.7 mg/dL (8.5-10.1) 01/30/24 10:20 Corrected Calcium 10.2 mg/dL (8.5-10.1) H 01/30/24 10:20 Total Bilirubin 0.40 mg/dL (0.2-1.0) 01/30/24 10:20 AST 12 Units/L (15-37) L 01/30/24 10:20 AST 13 Units/L (15-37) L 01/30/24 10:20 ALT 12 Units/L (12-78) 01/30/24 10:20 ALT 12 Units/L (12-78) 01/30/24 10:20 Alkaline Phosphatase 166 Units/L (46-116) H 01/30/24 10:20 Lactate Dehydrogenase 195 Units/L (81-234) 01/30/24 10:20 Total Protein 6.4 g/dL (6.4-8.2) 01/30/24 10:20 Albumin 2.1 g/dL (3.4-5.0) L 01/30/24 10:20 Globulin 4.3 g/dL (2.5-4.5) 01/30/24 10:20 Albumin/Globulin Ratio 0.5 Ratio (1.1-2.1) L 01/30/24 10:20 Specimen Type Clean catch urine 01/30/24 09:59 Urine Color Yellow (YELLOW) 01/30/24 09:59 Urine Appearance Clear (CLEAR) 01/30/24 09:59 Urine pH 7.0 (5.0 - 8.0) 01/30/24 09:59 Ur Specific [place] 1.010 (1.000-1.030) 01/30/24 09:59 Urine Protein 3+ (NEGATIVE) 01/30/24 09:59 Urine Glucose (UA) Negative (NEGATIVE) 01/30/24 09:59 Urine Ketones Negative (NEGATIVE) 01/30/24 09:59 Urine Blood Negative (NEGATIVE) 01/30/24 09:59 Urine Nitrite Negative (NEGATIVE) 01/30/24 09:59 Urine Bilirubin Negative (NEGATIVE) 01/30/24 09:59 Urine Urobilinogen Normal (NORMAL) 01/30/24 09:59 Ur Leukocyte Esterase Negative (NEGATIVE) 01/30/24 09:59 Urine RBC None seen /HPF (0-3) 01/30/24 09:59 Urine WBC 0-2 /HPF (0-5) 01/30/24 09:59 Ur Squamous Epith Cells Many /HPF (NEGATIVE) 01/30/24 09:59 Urine Bacteria Negative /HPF (NEGATIVE) 01/30/24 09:59 Urine Mucus Few /HPF (NEGATIVE) 01/30/24 09:59 Ur Culture Indicated? No/not indicated 01/30/24 09:59 RPR Nonreactive (NONREACTIVE) 01/30/24 10:20 HIV 1&2 Antibody Non reactive (NONREACTIVE) 01/30/24 10:20 HIV P24 Antigen Non reactive (NONREACTIVE) 01/30/24 10:20 Blood Type O NEGATIVE 01/30/24 10:20 Antibody Screen Negative 01/30/24 10:20 Opioid Opioid Risk Tool Age (Kt box if 16-45): Yes History of Preadolescent Sexual Abuse: No Total: 1 Total Score Risk Category: Low Risk Copyright: Hitesh HAILE predicting aberrant behaviors Discharge Plan Diagnosis Discharge Problem: delivery delivered Discharge Plan Patient Disposition: ADMITTED INPATIENT Condition: Stable Exam Constitutional Vital Signs, click to edit/add: Vital Signs - 24 hr 01/30/24 09:49 01/30/24 09:49 01/30/24 10:00 Temperature 99.3 F Pulse Rate 76 77 69 Respiratory Rate 20 20 Blood Pressure 209/119 190/108 O2 Sat by Pulse Oximetry 98 98 98 Oxygen Delivery Method Room Air Room Air 01/30/24 10:34 01/30/24 10:45 01/30/24 11:15 Temperature Pulse Rate 75 75 Respiratory Rate 20 18 Blood Pressure 192/105 189/108 194/113 O2 Sat by Pulse Oximetry 98 98 Oxygen Delivery Method Room Air Room Air HENMT Common normals: normocephalic and head/scalp atraumatic Eye Common normals: EOMs intact bilaterally Respiratory Common normals: clear to auscultation bilaterally Cardio Common normals: S1 normal heart sound and S2 normal heart sound GI Common normals: soft to palpation and non-tender Other: Gravid, at full term Extremity Common normals: normal to inspection Neuro Common normals: oriented x3 and CN's II-XII intact bilaterally Psych Common normals: affect normal Skin Common normals: no rashes or lesions noted
[2024-01-30] MEDS: EPHEDRINE SULFATE INJ ONE (12:09)
[2024-01-30] MEDS: NEO-SYNEPHRINE INJ ONE (12:09)
[2024-01-30] MEDS: NOZIN NASAL SANITIZER TP ONE (12:35)
[2024-01-30] MEDS: ANCEF VIAL 1 GRAM IVP ONE (12:42)
[2024-01-30] MEDS: NS 100 ML IV 100 ML ONE (12:42)
[2024-01-30] MEDS: DILAUDID INJ ONE (12:49)
[2024-01-30] MEDS: PEPCID 20 MG VIAL ONE (12:49)
[2024-01-30] MEDS: ZOFRAN INJ 4 MG VIAL ONE (12:49)
[2024-01-30] MEDS: MARCAINE SPINAL ONE (12:49)
[2024-01-30] MEDS: DIPRIVAN VIAL 20 ML ONE ×2 (12:49→13:59)
[2024-01-30] MEDS: DECADRON INJ ONE (12:49)
[2024-01-30] MEDS: REGLAN INJ 10 MG VIAL ONE (12:49)
[2024-01-30] MEDS: ROBINUL ONE (12:49)
[2024-01-30 13:09] LABS: ALANINE AMINOTRANSFERASE 12 Units/L (12-78); ALBUMIN 2.1 g/dL (3.4-5.0); ALKALINE PHOSPHATASE 166 Units/L (46-116); ASPARTATE AMINO TRANSFERASE 13 Units/L (15-37); BLOOD UREA NITROGEN 5 mg/dL (7-18); CALCIUM 8.7 mg/dL (8.5-10.1); CARBON DIOXIDE 26.3 mmol/L (21-32); CHLORIDE 103 mmol/L (98-107); COR CA(FOR HYPOALB) 10.2 mg/dL (8.5-10.1); CREATININE 0.62 mg/dL (0.55-1.02); GLUCOSE 85 mg/dL (65-99); SODIUM 138 mmol/L (136-145); TOTAL PROTEIN 6.4 g/dL (6.4-8.2); eGFR NON BLACK RACES > 60 (>60)
[2024-01-30] MEDS: PITOCIN ONE ×2 (13:27→21:18)
[2024-01-30] MEDS: OFIRMEV IV 1000 MG VIAL 1,000 MG/100 ML VIAL IV ONE (13:35)
[2024-01-30] MEDS: TORADOL 30 MG VIAL ONE (13:35)
[2024-01-30] MEDS: NARCAN INJ ONE (13:54)
[2024-01-30] MEDS ORDERED: ZOFRAN INJ 4 MG VIAL IVP PRN (14:20)
[2024-01-30] MEDS ORDERED: BARHEMSYS INJ IVP PRN (14:20)
[2024-01-30] MEDS ORDERED: REGLAN INJ 10 MG VIAL IVP PRN (14:20)
[2024-01-30] MEDS ORDERED: BENADRYL INJ 50 MG VIAL IVP PRN (14:20)
--- NOTE | 2024-01-30 14:26 | OB.OPNOTE ---
Op Note-ASSOCIATE VETERINARIAN (1) 37 weeks gestation of : (2) Previous delivery, delivered: (3) Pre-eclampsia in third trimester: (4) Sterilization: Post-Op Diagnosis: same Procedure: Elective repeat section via Pfannenstiel, bilateral Khoi tubal ligation Type of Anesthesia: Spinal Anesthetic Surgeon: Leela Dougherty MD EBL: 750 cc Total Amount of Fluid Infused:: Lactated ringers Complications:: None Drains/Tubes Placed: Moreno Specimen: Placenta and cord blood Findings: Live male with reassuring Apgars weighing 7 lb 6 oz. Operative technique: The risks and benefits were explained to the patient who was consented and taken to the operating room with IV running. Spinal anesthesia was administered and the patient was then repositioned in the dorsal supine position with a leftward tilt. She was sterilely prepped and draped in the usual sterile fashion with a Moreno inserted into the bladder. A timeout was obtained. The Pfannenstiel skin incision was made transversely in an elliptical fashion 2 fingerbreadths above the symphysis pubis. The incision was carried down to the anterior rectus fascia coagulating small bleeders in the subcutaneous tissue at the same time. It the fascia was scored with the Bovie and the incision was extended with curved Parker scissors in an upward elliptical fashion. The fascia was then tented up anteriorly in a cephalad direction. The Bovie was used to dissect this fascia from the anterior rectus muscles. The incision was then carried in a caudal direction by tenting up the lower aspect of the fascial incision again dissecting it with the Bovie away from the anterior rectus muscles. The rectus muscles were then in the midline the peritoneum was entered and using a bilateral stretching maneuver this incision was extended. The vesicouterine peritoneum was then tented up with a smooth forceps and dissected with the Metzenbaum scissors sharply, and a sponge was used to push the bladder in a caudal direction. The lower uterine transverse incision was made with a scalpel. The incision was extended with bilateral traction. An Allis clamp was used to rupture the amniotic membranes and clear fluid was noted. The scalp was delivered atraumatically through the myometrial incision and the cord was doubly clamped and cut and the infant handed off to pediatricians. The placenta was delivered with manual extraction the endometrial cavity was curetted with a moist laparotomy sponges and the cervix dilated with a sponge forceps. The lower uterine segment transverse incision was then closed with 0 Vicryl in a running unlocked fashion. Small bleeders were coagulated with the Bovie and attention was then turned to tying the tubes. Each tube was elevated with a Raya clamp and a vascular portion of the mesosalpinx. It ligatures of 0 plain gut were used to doubly tie the tubal segment and the segment was then excised with Metzenbaum scissors and the ligatures trimmed with suture scissors to approximately 2 and half centimeters. Each tube was approached in a similar fashion, and the tube was identified by visualizing the fimbriated end, and the telescopic nature of the tubal lumen. The lower uterine segment was inspected for hemostasis and the uterus was then gently returned to the abdomen. An anterior cul-de-sacs were then irrigated and suctioned dry and again the lower uterine segment was inspected for adequate hemostasis. The peritoneum was then grasped with Kassandra clamps and reapproximated with 2-0 Vicryl. The muscle layer was irrigated and blotted dry and inspected for adequate hemostasis. The fascia was then reapproximated with 0 Vicryl in a running fashion. Mariann's fascia was then irrigated and blotted dry and small bleeders coagulated with the Bovie. Mariann's fascia was then reapproximated with interrupted sutures of 3-0 Vicryl. [place] were applied to the skin as well as a sterile dressing. The patient was then returned to the dorsal supine position and transported to recovery room in stable condition.
[2024-01-30] MEDS ORDERED: OFIRMEV IV 1000 MG VIAL 1,000 MG/100 ML VIAL IV PRN (14:29)
[2024-01-30] MEDS ORDERED: NARCAN INJ IVP PRN (14:34)
[2024-01-30] MEDS ORDERED: MAGNESIUM SULFATE 40 GRAMS IV 40 G/1,000 ML BAG IV PRN (14:47)
[2024-01-30] MEDS ORDERED: LR 1,000 ML IV 1,000 ML IV SCH (16:00)
[2024-01-30] MEDS: BENADRYL INJ 50 MG VIAL IVP PRN (16:54)
--- NOTE | 2024-01-30 16:58 | OR.IMMED ---
IMMEDIATE POST-OP NOTE Immediate Post-Op Note Pre-Op Diagnosis: 37 weeks 5 days gestation with PIH pre-eclampsia, BP in severe range Procedure: Elective repeat CS with BTL Surgeon/Automotive Collision Estimator: Leela Dougherty MD Findings: Live male with reassuring apgars Specimens Removed: Placenta Estimated Blood Loss: 750 cc Drains: Catheter (Moreno) Complications: None Discharge Progress Notes: Transfer to PACU in stable condition Post Hospital Plans and Medications: stable
[2024-01-30] MEDS: MORPHINE SULFATE INJ 2 MG INJ IVP PRN (17:01)
[2024-01-30] MEDS ORDERED: APRESOLINE INJ 20 MG VIAL ONE (17:20)
[2024-01-30] MEDS: APRESOLINE INJ 20 MG VIAL IVP PRN (17:21)
[2024-01-30] MEDS ORDERED: LABETALOL HCL IVP PRN (17:29)
[2024-01-30] MEDS: OXYTOCIN 20 UNIT/1,000 ML-NS 20 UNIT/1,000 ML PLAST..BAG IV ONE (18:19)
[2024-01-30] MEDS: NORMODYNE TAB 100 MG PO SCH (21:11)
[2024-01-30] MEDS: NS 1,000 ML IV 1,000 ML ONE (21:19)
[2024-01-31] MEDS: MOTRIN TAB 800 MG PO PRN (00:29)
[2024-01-31] MEDS: PERCOCET TAB 5/325 MG PO PRN ×2 (03:22→09:50)
[2024-01-31 04:03] LABS: HEMATOCRIT 26.8 % (36.0-47.0); HEMOGLOBIN 8.9 g/dL (12.0-16.0)
--- NOTE | 2024-01-31 05:48 | NOTE.PROBC ---
Progress Note OB-C/S Subjective Data Subjective: No complaints, decreased lochia. Tolerating clear diet. No N/V. Moreno draining well. Pain under good control. No problems noted. Objective Data 01/31/24 03:50 01/30/24 10:20 Objective Data: CV= RRR no MRG Lungs=CTA Bilaterally Abd=(+) BS, soft, ND, appropriately tender near incision. Bandage removed. Incision clean/dry/intact, no erythema, no bleeding, no discharge. Dermabond/Stitches intact. Fundus firm/NT/ at { } cm below umbilicus. Ext= No edema, NT, No Cords. Graduated Compression Stockings/Sequential Compression Devices Bilaterally. Plan (1) Previous delivery, delivered: Plan: Continue post op as outlined in orders. Will DC Magnesium after 24 hours. DC Moreno. Ambulate with assistance and can transfer to a room. Discussed pain meds, BP meds. Add hydrochlorothiazide today. Has Labetalol 100 mg at home. (2) 37 weeks gestation of : (3) Pre-eclampsia in third trimester: (4) Sterilization: (5) Anemia: Plan: Add supplemental iron.
[2024-01-31] MEDS: LR 1,000 ML IV 1,000 ML IV SCH (06:37)
[2024-01-31] MEDS ORDERED: NORMODYNE INJ 20 MG VIAL IVP PRN (07:39)
--- NOTE | 2024-01-31 08:31 | DR.H&PGYN ---
H&P OBSTERICS/GYNECOLOGY Chief Complaint (1) 37 weeks gestation of : (2) Previous delivery, delivered: (3) Pre-eclampsia in third trimester: (4) Sterilization: Allergies Allergies Allergy/AdvReac Type Severity Reaction Status Date / Time sulfamethoxazole Allergy Verified 01/30/24 10:00 [From ] trimethoprim [From ] Allergy Verified 01/30/24 10:00 History of Present Illness History of Present Illness: Patient is a 33-year-old 3 para 2, at 37 weeks and 5 days with a history of preeclampsia with worsening blood pressures. Patient has been seeing Dr. Garcia, who recently increased her dose of labetalol to 200 twice daily. However the patient comes in with blood pressures that are severely elevated today. No other complaints such as headache, scotomata, and has a trace of pedal edema. Denies a history of chronic hypertension. Review of Systems Constitutional: Other (It a 14 point review of systems was administered and is negative other than as noted in the history of present illness. ) Obsterical History : 3 Para: 2 Past Medical History Medical History: Other (Obesity, but denies a history of chronic hypertension.); denies HTN Past Surgical History Surgical History: Social History Does patient currently use any type of tobacco product: No Have you used tobacco products in the last 12 months: No Type of Tobacco Use: None Alcohol Use: None Drug Use: None Medications Active Medications Diphenhydramine HCl (Diphenhydramine Inj 50 Mg/1 Ml Vial) 25 mg IVP Q4H PRN PRN Reason: ITCHING Last Admin: 01/30/24 22:04 Dose: 25 mg Ferrous Fumarate/Vit C/Docusate Sod ( Vitamin Tab) 1 tab PO DAILY [place] Hydralazine HCl (Hydralazine Hcl 20 Mg/Ml Vial 1 Ml) 5 mg IVP Q1H PRN PRN Reason: HIGH BLOOD PRESSURE Last Admin: 01/30/24 17:21 Dose: 5 mg Hydrochlorothiazide (Hydrochlorothiazide 12.5 Mg Cap) 12.5 mg PO DAILY [place] Acetaminophen (Ofirmev Iv 1000 Mg Vial) 1,000 mg in 100 mls @ 400 mls/hr IV Q6H PRN PRN Reason: FEVER OR MILD PAIN Stop: 01/31/24 14:28 Magnesium Sulfate (Magnesium Sulfate 40 Grams Iv) 40 g in 1,000 mls @ 50 mls/hr IV Q20H [facility] Stop: 01/31/24 14:59 Lactated Ringer's (Lr 1,000 Ml Iv) 1,000 mls @ 75 mls/hr IV Q13H [facility] Last Admin: 01/31/24 06:37 Dose: Not Given Ibuprofen (Ibuprofen 800 Mg Tab) 600 mg PO Q6H PRN PRN Reason: MILD TO MODERATE PAIN Last Admin: 01/31/24 00:29 Dose: 600 mg Labetalol HCl (Labetalol Hcl 100 Mg Tab) 100 mg PO BID [facility] Last Admin: 01/30/24 21:11 Dose: 100 mg Labetalol HCl (Labetalol Inj 20 Mg/4 Ml Vial (5 Mg/Ml)) 20 mg IVP Q1H PRN PRN Reason: HIGH BLOOD PRESSURE Morphine Sulfate (Morphine Sulfate 2 Mg / 1 Ml Inj) 2 mg IVP Q4H PRN PRN Reason: SEVERE PAIN Last Admin: 01/30/24 17:01 Dose: 2 mg Naloxone HCl (Naloxone Hcl 2 Mg / 2 Ml Inj) 0.05 mg IVP Q2H PRN PRN Reason: ITCHING Ondansetron HCl (Ondansetron Hcl 4 Mg/2 Ml Inj) 4 mg IVP Q8H PRN PRN Reason: NAUSEA/VOMITING Oxycodone/Acetaminophen (Oxycodone/Acet 5 Mg/325 Mg Tab) 1 ea PO Q4H PRN PRN Reason: SEVERE PAIN Rho Immune Globulin (Rho D Immune Globulin (Human) 300 Mcg 1 Ml Syringe *Im Only) 300 mcg IM ONCE PRN PRN Reason: PRN Physical Exam Temperature: 98.6 F Blood Pressure: 148/82 Respiratory Rate: 22 Pulse Rate: 117 O2 Sat by Pulse Oximetry: 96 Oriented: Normal and Other (33-year-old obese multigravida who appears in no apparent distress. Lungs are clear to auscultation, heart regular rate and rhythm, abdomen is soft gravid and benign cervical examination was deferred. heart tones are are normal category 1. She has a trace of pedal edema.) Eyes: Normal Respiratory: Normal Skin: Normal Psychiatric: Normal Mood Description: Calm Affect: Normal Plan Plan: The patient was admitted for control of her blood pressure and was found to be 37 weeks and 5 days with a history of previous section. The plan was to proceed with elective repeat section, in a pre-eclamptic with worsening BP despite recent increase in medication dosage. Patient also desired a tubal ligation and had been consented previously. Review H&P Reviewed: Yes Patient was examined?: Yes
[2024-01-31] MEDS: HYDROCHLOROTHIAZIDE 12.5 MG CAP PO SCH (08:36)
[2024-01-31] MEDS: PRENATAL PLUS PO SCH (08:37)
[2024-01-31] MEDS ORDERED: PRENATAL PLUS PO SCH (09:00)
[2024-01-31] MEDS: MAGNESIUM SULFATE 40 GRAMS IV 40 G/1,000 ML BAG IV SCH (09:46)
[2024-01-31] MEDS: HYPERRHO S/D (or RHOGAM) IM PRN (11:34)
[2024-01-31] MEDS: ADACEL or BOOSTRIX TDaP VACCINE IM ONE (14:43)
[2024-01-31] MEDS: NORMODYNE INJ 100 MG VIAL ONE (16:33)
[2024-01-31] MEDS: ZOFRAN INJ 4 MG VIAL IVP PRN (16:35)
[2024-02-01 00:35] VITALS: RESP 20
[2024-02-01] MEDS: NORMODYNE TAB 200 MG PO SCH (08:12)
[2024-02-01] MEDS: NORMODYNE TAB 200 MG PO ONE (13:48)
--- NOTE | 2024-02-01 14:46 | NOTE.PROBC ---
Progress Note OB-C/S Subjective Data Subjective: No complaints, decreased lochia. Tolerating regular house diet. No N/V. Ambulating well. Moreno draining well. Pain under good control with oral pain medicine. Objective Data 01/31/24 03:50 01/30/24 10:20 Objective Data: CV= RRR no MRG Lungs=CTA Bilaterally Abd=(+) BS, soft, ND, appropriately tender near incision. Bandage removed. Incision clean/dry/intact, no erythema, no bleeding, no discharge. Fundus firm/NT/ at 1 cm below umbilicus. Ext= No edema, NT, No Cords. Graduated Compression Stockings/Sequential Compression Devices Bilaterally. Plan (1) 37 weeks gestation of : (2) Previous delivery, delivered: (3) Pre-eclampsia in third trimester: Plan: Postoperative day #1 patient's blood pressure appeared to be normal however overnight the patient experienced severe elevations in her blood pressure and so was not discharged until the blood pressure could be managed with her oral medicine. (4) Sterilization:
--- NOTE | 2024-02-01 15:02 | DR.OBINT ---
OB INITIAL NOTE Laboratory 01/31/24 03:50 01/30/24 10:20 Lab Results: WBC 9.4 X10^3/uL (3.6-10.0) 01/30/24 10:20 RBC 4.05 X10^6/uL (3.5-5.4) 01/30/24 10:20 Hgb 10.8 g/dL (12.0-16.0) L 01/30/24 10:20 Hct 32.5 % (36.0-47.0) L 01/30/24 10:20 MCV 80.2 fL (80.0-100.0) 01/30/24 10:20 MCH 26.8 pg (27.0-34.0) L 01/30/24 10:20 MCHC 33.4 g/dL (33.0-35.0) 01/30/24 10:20 RDW 15.5 % (11.6-16.5) 01/30/24 10:20 Plt Count 248 X10^3/uL (150.0-450.0) 01/30/24 10:20 MPV 8.5 fL (7.4-11.0) 01/30/24 10:20 Neut % (Auto) 76.2 % (42.0-75.0) H 01/30/24 10:20 Lymph % (Auto) 16.7 % (21.0-51.0) L 01/30/24 10:20 [place] % (Auto) 6.0 % (0.0-13.0) 01/30/24 10:20 Eos % (Auto) 0.7 % (0.9-2.9) L 01/30/24 10:20 Baso % (Auto) 0.4 % (0.2-1.0) 01/30/24 10:20 Neut # (Auto) 7.2 x10^3/uL (2.2-4.8) H 01/30/24 10:20 Lymph # (Auto) 1.6 X10^3/uL (1.3-2.9) 01/30/24 10:20 [place] # (Auto) 0.6 x10^3/uL (0.3-0.8) 01/30/24 10:20 Eos # (Auto) 0.1 x10^3/uL (0.0-0.2) 01/30/24 10:20 Baso # (Auto) 0.0 X10^3/uL (0.0-0.1) 01/30/24 10:20 Absolute Nucleated RBC 0.0 /100WBC 01/30/24 10:20 PT 12.4 SECONDS (11.8-14.3) 01/30/24 10:20 INR Target Range - 01/30/24 10:20 INR 0.94 (0.8-1.3) 01/30/24 10:20 APTT 27.4 SECONDS (22.9-36.5) 01/30/24 10:20 PTT Comment - 01/30/24 10:20 Fibrinogen 643 mg/dL (239-489) H 01/30/24 10:20 Sodium 138 mmol/L (136-145) 01/30/24 10:20 Corrected Sodium TNP 01/30/24 10:20 Potassium 4.0 mmol/L (3.5-5.1) 01/30/24 10:20 Chloride 103 mmol/L (98-107) 01/30/24 10:20 Carbon Dioxide 26.3 mmol/L (21-32) 01/30/24 10:20 BUN 5 mg/dL (7-18) L 01/30/24 10:20 Creatinine 0.62 mg/dL (0.55-1.02) 01/30/24 10:20 Est GFR (MDRD) Af Amer > 60 (>60) 01/30/24 10:20 Est GFR (MDRD) Non-Af > 60 (>60) 01/30/24 10:20 Glucose 85 mg/dL (65-99) 01/30/24 10:20 Uric Acid 5.3 mg/dL (2.6-6.0) 01/30/24 10:20 Calcium 8.7 mg/dL (8.5-10.1) 01/30/24 10:20 Corrected Calcium 10.2 mg/dL (8.5-10.1) H 01/30/24 10:20 Total Bilirubin 0.40 mg/dL (0.2-1.0) 01/30/24 10:20 AST 12 Units/L (15-37) L 01/30/24 10:20 AST 13 Units/L (15-37) L 01/30/24 10:20 ALT 12 Units/L (12-78) 01/30/24 10:20 ALT 12 Units/L (12-78) 01/30/24 10:20 Alkaline Phosphatase 166 Units/L (46-116) H 01/30/24 10:20 Lactate Dehydrogenase 195 Units/L (81-234) 01/30/24 10:20 Total Protein 6.4 g/dL (6.4-8.2) 01/30/24 10:20 Albumin 2.1 g/dL (3.4-5.0) L 01/30/24 10:20 Globulin 4.3 g/dL (2.5-4.5) 01/30/24 10:20 Albumin/Globulin Ratio 0.5 Ratio (1.1-2.1) L 01/30/24 10:20 Specimen Type Clean catch urine 01/30/24 09:59 Urine Color Yellow (YELLOW) 01/30/24 09:59 Urine Appearance Clear (CLEAR) 01/30/24 09:59 Urine pH 7.0 (5.0 - 8.0) 01/30/24 09:59 Ur Specific [place] 1.010 (1.000-1.030) 01/30/24 09:59 Urine Protein 3+ (NEGATIVE) 01/30/24 09:59 Urine Glucose (UA) Negative (NEGATIVE) 01/30/24 09:59 Urine Ketones Negative (NEGATIVE) 01/30/24 09:59 Urine Blood Negative (NEGATIVE) 01/30/24 09:59 Urine Nitrite Negative (NEGATIVE) 01/30/24 09:59 Urine Bilirubin Negative (NEGATIVE) 01/30/24 09:59 Urine Urobilinogen Normal (NORMAL) 01/30/24 09:59 Ur Leukocyte Esterase Negative (NEGATIVE) 01/30/24 09:59 Urine RBC None seen /HPF (0-3) 01/30/24 09:59 Urine WBC 0-2 /HPF (0-5) 01/30/24 09:59 Ur Squamous Epith Cells Many /HPF (NEGATIVE) 01/30/24 09:59 Urine Bacteria Negative /HPF (NEGATIVE) 01/30/24 09:59 Urine Mucus Few /HPF (NEGATIVE) 01/30/24 09:59 Ur Culture Indicated? No/not indicated 01/30/24 09:59 RPR Nonreactive (NONREACTIVE) 01/30/24 10:20 HIV 1&2 Antibody Non reactive (NONREACTIVE) 01/30/24 10:20 HIV P24 Antigen Non reactive (NONREACTIVE) 01/30/24 10:20 Blood Type O NEGATIVE 01/30/24 15:35 Antibody Screen Negative 01/30/24 10:20 Baby's Blood Type A positive 01/30/24 15:35 RhIG Eligibility Yes 01/30/24 15:35 Maternal Bleed Negative (NEGATIVE) 01/30/24 15:35 Doses of RhIg Required One vial 01/30/24 15:35 Assessment/Plan (1) 37 weeks gestation of : (2) Previous delivery, delivered: (3) Pre-eclampsia in third trimester: (4) Sterilization:
[2024-02-01 16:21] VITALS: BP 157/54; PULSE 113; TEMP 98.3; O2SAT 96
[2024-02-01] MEDS ORDERED: PERCOCET TAB 5/325 MG PO PRN ×2 (16:47→16:51)
--- NOTE | 2024-02-02 09:04 | W.DIS.FURT ---
Summary of Discharge Discharge Summary of Date Date of Exam: 02/01/24 Admission Diagnosis Hospital Course: Patient is a 33-year-old 3 para 2 with 2 previous C-sections at 37 weeks and 5 days of gestation who came in with worsening elevated blood pressures, and was admitted for elective repeat section with tubal ligation. She had an uneventful procedure and her postop course was essentially uneventful other than some blood pressure elevations between day #1 and 2. Her dose of labetalol was increased to 200 mg 3 times daily which gave her better control of her blood pressure in addition she had a daily dose of hydrochlorothiazide. On postoperative day #2 the patient was discharged to home with a prescription for Percocet. There was a problem with the prescribing so Tylenol 3 was called in to the pharmacy until the E scribed c ould be done the following day. She was also discharged on labetalol hydrochlorothiazide and ibuprofen. Vital Signs: Vital Signs (72 hours) 01/30/24 09:49 01/30/24 09:49 01/30/24 10:00 Temperature 99.3 F Pulse Rate 76 77 69 Pulse Rate [Left] Respiratory Rate 20 20 Blood Pressure 209/119 190/108 Blood Pressure [Right Arm] O2 Sat by Pulse Oximetry 98 98 98 Oxygen Delivery Method Room Air Room Air 01/30/24 10:34 01/30/24 10:45 01/30/24 11:15 Temperature Pulse Rate 75 75 Pulse Rate [Left] Respiratory Rate 20 18 Blood Pressure 192/105 189/108 194/113 Blood Pressure [Right Arm] O2 Sat by Pulse Oximetry 98 98 Oxygen Delivery Method Room Air Room Air 01/30/24 11:30 01/30/24 11:50 01/30/24 12:03 Temperature Pulse Rate 73 87 78 Pulse Rate [Left] Respiratory Rate 18 Blood Pressure 188/115 Blood Pressure [Right Arm] O2 Sat by Pulse Oximetry 98 97 98 Oxygen Delivery Method Room Air 01/30/24 12:05 01/30/24 12:08 01/30/24 12:11 Temperature Pulse Rate 77 86 81 Pulse Rate [Left] Respiratory Rate Blood Pressure 199/122 207/117 Blood Pressure [Right Arm] O2 Sat by Pulse Oximetry 99 Oxygen Delivery Method 01/30/24 12:13 01/30/24 12:15 01/30/24 12:18 Temperature Pulse Rate 90 82 79 Pulse Rate [Left] Respiratory Rate Blood Pressure 205/112 Blood Pressure [Right Arm] O2 Sat by Pulse Oximetry 99 97 Oxygen Delivery Method 01/30/24 12:20 01/30/24 12:25 01/30/24 12:28 Temperature Pulse Rate 83 86 81 Pulse Rate [Left] Respiratory Rate Blood Pressure 188/106 176/104 Blood Pressure [Right Arm] O2 Sat by Pulse Oximetry 98 Oxygen Delivery Method 01/30/24 12:31 01/30/24 12:33 01/30/24 12:35 Temperature Pulse Rate 81 86 80 Pulse Rate [Left] Respiratory Rate Blood Pressure 188/109 172/97 Blood Pressure [Right Arm] O2 Sat by Pulse Oximetry 99 Oxygen Delivery Method 01/30/24 11:56 01/30/24 12:49 01/30/24 12:17 Temperature Pulse Rate Pulse Rate [Left] 87 Respiratory Rate 18 16 Blood Pressure Blood Pressure [Right Arm] 188/115 O2 Sat by Pulse Oximetry 97 Oxygen Delivery Method Room Air Room Air 01/30/24 13:35 01/30/24 14:15 01/30/24 14:20 Temperature 97.4 F L Pulse Rate 77 81 Pulse Rate [Left] Respiratory Rate 16 16 18 Blood Pressure 160/98 164/100 Blood Pressure [Right Arm] O2 Sat by Pulse Oximetry 98 98 Oxygen Delivery Method Nasal Cannula Nasal Cannula 01/30/24 14:30 01/30/24 14:35 01/30/24 14:40 Temperature Pulse Rate 73 65 71 Pulse Rate [Left] Respiratory Rate 18 18 18 Blood Pressure 161/99 173/102 178/99 Blood Pressure [Right Arm] O2 Sat by Pulse Oximetry 99 99 99 Oxygen Delivery Method Nasal Cannula Nasal Cannula Nasal Cannula 01/30/24 14:45 01/30/24 14:55 01/30/24 14:25 Temperature Pulse Rate 71 71 77 Pulse Rate [Left] Respiratory Rate 18 18 18 Blood Pressure 172/102 171/102 170/93 Blood Pressure [Right Arm] O2 Sat by Pulse Oximetry 99 99 98 Oxygen Delivery Method Nasal Cannula Nasal Cannula Nasal Cannula 01/30/24 14:50 01/30/24 15:10 01/30/24 15:25 Temperature 97.6 F 97.6 F Pulse Rate 72 Pulse Rate [Left] 71 72 Respiratory Rate 18 21 26 H Blood Pressure 169/100 Blood Pressure [Right Arm] 187/93 167/109 O2 Sat by Pulse Oximetry 99 Oxygen Delivery Method Nasal Cannula 01/30/24 15:40 01/30/24 15:55 01/30/24 17:01 Temperature 97.6 F 97.6 F Pulse Rate Pulse Rate [Left] 75 74 Respiratory Rate 15 22 26 H Blood Pressure Blood Pressure [Right Arm] 155/94 170/98 O2 Sat by Pulse Oximetry Oxygen Delivery Method 01/30/24 16:10 01/30/24 17:10 01/30/24 17:31 Temperature 97.6 F 97.6 F Pulse Rate Pulse Rate [Left] 74 86 Respiratory Rate 22 23 21 Blood Pressure Blood Pressure [Right Arm] 170/98 172/101 O2 Sat by Pulse Oximetry Oxygen Delivery Method 01/30/24 18:10 01/30/24 19:10 01/31/24 00:29 Temperature 97.6 F Pulse Rate 95 H Pulse Rate [Left] 98 H Respiratory Rate 28 H 26 H 22 Blood Pressure 174/89 Blood Pressure [Right Arm] 163/98 O2 Sat by Pulse Oximetry 96 Oxygen Delivery Method Room Air 01/30/24 20:10 01/30/24 21:00 01/30/24 21:15 Temperature 98.3 F Pulse Rate 90 92 H 94 H Pulse Rate [Left] Respiratory Rate 29 H 18 24 Blood Pressure 169/83 170/94 171/95 Blood Pressure [Right Arm] O2 Sat by Pulse Oximetry 96 98 98 Oxygen Delivery Method Room Air Room Air Room Air 01/30/24 23:00 01/30/24 19:30 01/30/24 20:30 Temperature Pulse Rate 103 H 95 H 95 H Pulse Rate [Left] Respiratory Rate 25 H 28 H 29 H Blood Pressure 156/98 174/89 162/96 Blood Pressure [Right Arm] O2 Sat by Pulse Oximetry 98 96 96 Oxygen Delivery Method Room Air Room Air Room Air 01/30/24 21:30 01/30/24 22:30 01/31/24 00:00 Temperature 98.1 F Pulse Rate 96 H 108 H 104 H Pulse Rate [Left] Respiratory Rate 28 H 26 H 21 Blood Pressure 163/89 141/93 151/80 Blood Pressure [Right Arm] O2 Sat by Pulse Oximetry 96 97 95 Oxygen Delivery Method Room Air Room Air Room Air 01/31/24 00:30 01/31/24 01:00 01/31/24 01:29 Temperature Pulse Rate 107 H 106 H Pulse Rate [Left] Respiratory Rate 28 H 22 22 Blood Pressure 148/75 142/82 Blood Pressure [Right Arm] O2 Sat by Pulse Oximetry 95 96 Oxygen Delivery Method Room Air Room Air 01/31/24 01:30 01/31/24 02:00 01/31/24 03:22 Temperature Pulse Rate 102 H 106 H Pulse Rate [Left] Respiratory Rate 30 H 28 H 22 Blood Pressure 149/92 150/90 Blood Pressure [Right Arm] O2 Sat by Pulse Oximetry 96 97 Oxygen Delivery Method Room Air 01/31/24 03:00 01/31/24 04:00 01/31/24 04:30 Temperature 98.6 F Pulse Rate 108 H 108 H 104 H Pulse Rate [Left] Respiratory Rate 27 H 16 20 Blood Pressure 149/78 138/97 150/87 Blood Pressure [Right Arm] O2 Sat by Pulse Oximetry 95 96 96 Oxygen Delivery Method Room Air Room Air Room Air 01/31/24 04:22 01/31/24 05:00 01/31/24 05:41 Temperature Pulse Rate 102 H 105 H Pulse Rate [Left] Respiratory Rate 22 14 22 Blood Pressure 150/86 148/88 Blood Pressure [Right Arm] O2 Sat by Pulse Oximetry 95 97 Oxygen Delivery Method Room Air Labs: Laboratory Last Values WBC 9.4 X10^3/uL (3.6-10.0) 01/30/24 10:20 RBC 4.05 X10^6/uL (3.5-5.4) 01/30/24 10:20 Hgb 8.9 g/dL (12.0-16.0) L 01/31/24 03:50 Hct 26.8 % (36.0-47.0) L 01/31/24 03:50 MCV 80.2 fL (80.0-100.0) 01/30/24 10:20 MCH 26.8 pg (27.0-34.0) L 01/30/24 10:20 MCHC 33.4 g/dL (33.0-35.0) 01/30/24 10:20 RDW 15.5 % (11.6-16.5) 01/30/24 10:20 Plt Count 248 X10^3/uL (150.0-450.0) 01/30/24 10:20 MPV 8.5 fL (7.4-11.0) 01/30/24 10:20 Neut % (Auto) 76.2 % (42.0-75.0) H 01/30/24 10:20 Lymph % (Auto) 16.7 % (21.0-51.0) L 01/30/24 10:20 [place] % (Auto) 6.0 % (0.0-13.0) 01/30/24 10:20 Eos % (Auto) 0.7 % (0.9-2.9) L 01/30/24 10:20 Baso % (Auto) 0.4 % (0.2-1.0) 01/30/24 10:20 Neut # (Auto) 7.2 x10^3/uL (2.2-4.8) H 01/30/24 10:20 Lymph # (Auto) 1.6 X10^3/uL (1.3-2.9) 01/30/24 10:20 [place] # (Auto) 0.6 x10^3/uL (0.3-0.8) 01/30/24 10:20 Eos # (Auto) 0.1 x10^3/uL (0.0-0.2) 01/30/24 10:20 Baso # (Auto) 0.0 X10^3/uL (0.0-0.1) 01/30/24 10:20 Absolute Nucleated RBC 0.0 /100WBC 01/30/24 10:20 PT 12.4 SECONDS (11.8-14.3) 01/30/24 10:20 INR Target Range - 01/30/24 10:20 INR 0.94 (0.8-1.3) 01/30/24 10:20 APTT 27.4 SECONDS (22.9-36.5) 01/30/24 10:20 PTT Comment - 01/30/24 10:20 Fibrinogen 643 mg/dL (239-489) H 01/30/24 10:20 Sodium 138 mmol/L (136-145) 01/30/24 10:20 Corrected Sodium TNP 01/30/24 10:20 Potassium 4.0 mmol/L (3.5-5.1) 01/30/24 10:20 Chloride 103 mmol/L (98-107) 01/30/24 10:20 Carbon Dioxide 26.3 mmol/L (21-32) 01/30/24 10:20 BUN 5 mg/dL (7-18) L 01/30/24 10:20 Creatinine 0.62 mg/dL (0.55-1.02) 01/30/24 10:20 Est GFR (MDRD) Af Amer > 60 (>60) 01/30/24 10:20 Est GFR (MDRD) Non-Af > 60 (>60) 01/30/24 10:20 Glucose 85 mg/dL (65-99) 01/30/24 10:20 Uric Acid 5.3 mg/dL (2.6-6.0) 01/30/24 10:20 Calcium 8.7 mg/dL (8.5-10.1) 01/30/24 10:20 Corrected Calcium 10.2 mg/dL (8.5-10.1) H 01/30/24 10:20 Magnesium 4.4 mg/dL (2.0-2.9) H 01/31/24 03:50 Total Bilirubin 0.40 mg/dL (0.2-1.0) 01/30/24 10:20 AST 12 Units/L (15-37) L 01/30/24 10:20 AST 13 Units/L (15-37) L 01/30/24 10:20 ALT 12 Units/L (12-78) 01/30/24 10:20 ALT 12 Units/L (12-78) 01/30/24 10:20 Alkaline Phosphatase 166 Units/L (46-116) H 01/30/24 10:20 Lactate Dehydrogenase 195 Units/L (81-234) 01/30/24 10:20 Total Protein 6.4 g/dL (6.4-8.2) 01/30/24 10:20 Albumin 2.1 g/dL (3.4-5.0) L 01/30/24 10:20 Globulin 4.3 g/dL (2.5-4.5) 01/30/24 10:20 Albumin/Globulin Ratio 0.5 Ratio (1.1-2.1) L 01/30/24 10:20 Specimen Type Clean catch urine 01/30/24 09:59 Urine Color Yellow (YELLOW) 01/30/24 09:59 Urine Appearance Clear (CLEAR) 01/30/24 09:59 Urine pH 7.0 (5.0 - 8.0) 01/30/24 09:59 Ur Specific [place] 1.010 (1.000-1.030) 01/30/24 09:59 Urine Protein 3+ (NEGATIVE) 01/30/24 09:59 Urine Glucose (UA) Negative (NEGATIVE) 01/30/24 09:59 Urine Ketones Negative (NEGATIVE) 01/30/24 09:59 Urine Blood Negative (NEGATIVE) 01/30/24 09:59 Urine Nitrite Negative (NEGATIVE) 01/30/24 09:59 Urine Bilirubin Negative (NEGATIVE) 01/30/24 09:59 Urine Urobilinogen Normal (NORMAL) 01/30/24 09:59 Ur Leukocyte Esterase Negative (NEGATIVE) 01/30/24 09:59 Urine RBC None seen /HPF (0-3) 01/30/24 09:59 Urine WBC 0-2 /HPF (0-5) 01/30/24 09:59 Ur Squamous Epith Cells Many /HPF (NEGATIVE) 01/30/24 09:59 Urine Bacteria Negative /HPF (NEGATIVE) 01/30/24 09:59 Urine Mucus Few /HPF (NEGATIVE) 01/30/24 09:59 Ur Culture Indicated? No/not indicated 01/30/24 09:59 RPR Nonreactive (NONREACTIVE) 01/30/24 10:20 HIV 1&2 Antibody Non reactive (NONREACTIVE) 01/30/24 10:20 HIV P24 Antigen Non reactive (NONREACTIVE) 01/30/24 10:20 Blood Type O NEGATIVE 01/30/24 15:35 Antibody Screen Negative 01/30/24 10:20 Baby's Blood Type A positive 01/30/24 15:35 RhIG Eligibility Yes 01/30/24 15:35 Maternal Bleed Negative (NEGATIVE) 01/30/24 15:35 Doses of RhIg Required One vial 01/30/24 15:35 Reason For Visit: PREECLAMPSIA Discharge Diagnosis All Active Problems (Updated 01/31/24 @ 05:47 by Leela Dougherty) Sterilization (Acute) Pre-eclampsia in third trimester (Acute) Previous delivery, delivered (Acute) 37 weeks gestation of (Acute) Chest wall pain (Acute) -induced hypertension in third trimester (Acute) [place] contractions (Acute) Dehydration (Acute) Acute bronchitis (Acute) macrosomia (Acute) induced hypertension (Acute) delivery delivered (Acute) Weakness (Acute) Feeling jittery (Acute) Hx of hypoglycemia (Acute) Headache (Acute) Uterine contractions during (Acute) Anemia (Acute) Polyhydramnios (Acute) delivery delivered (Acute) Left ankle sprain (Acute) Third trimester (Acute) Plan of Treatment: Continue with present treatment and follow up plan. Pt is to keep follow up appointment as instructed and take medications as ordered. Discharge Medications Discharge Medications: sulfamethoxazole [From Septra] Allergy (Verified 01/30/24 10:00) trimethoprim [From Septra] Allergy (Verified 01/30/24 10:00) CONTINUE taking the following medications labetalol 100 mg tablet 200 mg PO BID 01/30/24 [History] Discharge Disposition Assessment: Patient may follow up with Dr. Garcia, or with me for the incision and BP check within 1 week. Discharge Plan Discharge Plan Hospital Course: Patient is a 33-year-old 3 para 2 with 2 previous C-sections at 37 weeks and 5 days of gestation who came in with worsening elevated blood pressures, and was admitted for elective repeat section with tubal ligation. She had an uneventful procedure and her postop course was essentially uneventful other than some blood pressure elevations between day #1 and 2. Her dose of labetalol was increased to 200 mg 3 times daily which gave her better control of her blood pressure in addition she had a daily dose of hydrochlorothiazide. On postoperative day #2 the patient was discharged to home with a prescription for Percocet. There was a problem with the prescribing so Tylenol 3 was called in to the pharmacy until the E scribed could be done the following day. She was also discharged on labetalol hydrochlorothiazide and ibuprofen. Patient Disposition: 01 HOME, SELF-CARE Condition: Stable Health Concerns: Post Hospitalization: new medications and changes needed to prevent readmission or further decline. Pt educated and given instructions on all concerns. Care Plan Goals: Problem: Potential for Infection Goal: Mother will remain free from infection. Verbalizes preventable risk. Instructions: Follow provided instructions. Follow up with primary physician as directed. Contact primary care physician or report to the closest Emergency Room if condition worsens. Plan of Treatment: Continue with present treatment and follow up plan. Pt is to keep follow up appointment as instructed and take medications as ordered. Assessment: Patient may follow up with Dr. Garcia, or with me for the incision and BP check within 1 week. Prescriptions: New ibuprofen 800 mg Tablet 600 mg PO Q6H PRNQty: 60 1RF hydrochlorothiazide 12.5 mg Capsule 12.5 mg PO DAILY Qty: 30 1RF Vitamin 27 mg iron- 800 mcg Tablet 1 tab PO DAILY Qty: 30 0RF labetalol 200 mg Tablet 200 mg PO TID 30 Days Qty: 90 0RF oxycodone-acetaminophen 5-325 mg Tablet 1 tab PO Q4H MDD 4 PRN7 Days Qty: 28 0RF Continued Vitamin 27 mg iron- 800 mcg tablet 1 tab PO QDAY Discontinued ondansetron HCl 4 mg tablet 4 mg PO Q4H PRN levalbuterol HCl 1.25 mg/3 mL Solution For Nebulization 1.25 mg NEB Q4H PRN (Reason: Shortness Of Breath) Qty: 21 0RF labetalol 100 mg tablet 200 mg PO BID Follow ups/Referrals Follow ups/Referrals: BRAYDEN GARCIA [Primary Care Provider] - 1 WEEK (Call office on Monday and md geraldine a 1 week follow up for incision check, staple removal, and BP check. ) Instructions Instructions: for Newborns, Tubal Ligation, Preeclampsia and Eclampsia, Hemorrhage, Baby Blues, and Breast Care, [id number], Care After Delivery, Breast Pumping Tips, [id number], Eating Plan for Women, Storing Breast Milk Stand Alone Forms: Excuse From Work or School, Post Hospital Follow Up Care
[2024-02-02] MEDS ORDERED: PERCOCET TAB 5/325 MG PO PRN (10:18)
== END 2024-02-01 17:45 | disposition home or self-care (01) | DRG 787 ==
LOC: ER 09:30 → LD 11:24 → ICU 15:07 → MED/SURG 01-31 15:22
PROVIDERS: ADMIT Obstetrics & Gynecology; ATTEND Obstetrics & Gynecology